=== PATIENT | male | born 1950 | race Caucasian/White ===

== ENCOUNTER 2023-08-16 15:29 | Emergency (ER) | payer MEDICARE, MEDICAID, SELFPAY ==
--- NOTE | ~2023-08-16 | XR_ITS ---
EXAMINATION: XR CHEST CLINICAL INFORMATION: Syncope and fall. COMPARISON: None available. TECHNIQUE: Frontal view of the chest was obtained. FINDINGS: The heart, great vessels, pulmonary vasculature and mediastinum are normal. The lungs show no focal infiltrate, effusion or pneumothorax. There is mild bronchiolar wall thickening. No acute osseous abnormality is seen. XR/XR chest 1V IMPRESSION: 1. No focal infiltrate or congestive heart place seen. 2. There is mild bronchiolar wall thickening, which can be associated with acute bronchiolitis or reactive airways disease.
--- NOTE | ~2023-08-16 | CT_ITS ---
EXAMINATION: CT HEAD WITHOUT CONTRAST CLINICAL INFORMATION: Headache status-post postfall. COMPARISON: None available. TECHNIQUE: Contiguous axial imaging was performed from the skull base to vertex without intravenous administration of contrast. Multiplanar reformatted images are submitted. This CT examination was performed using dose optimization techniques as appropriate, variously including the following: *Automated exposure control *Adjustment of mA and/or kV according to patient size (this includes techniques or standardized protocols for targeted exams where dose is matched to indication/reason for exam; i.e. extremities or head) *Use of iterative reconstruction technique DLP: 1253 mGy-cm (head and cervical spine) FINDINGS: There is no acute intracranial hemorrhage or evidence of territorial infarction. There is mild bifrontal streak artifact. No abnormal mass effect or midline shift is seen. Escobar to white matter differentiation is well preserved. There is mild patchy low attenuation change in the periventricular white matter spaces. There are bilateral basal ganglia lacunar infarctions. The ventricles are normal in size. No extra-axial fluid collections are identified. The calvarium and scalp soft tissues are normal. The middle ear cavity and mastoid air cells are clear. There is cerumen in the left external auditory canal. The visualized paranasal sinuses are clear. CT/CT cervical spine wo IV con IMPRESSION: 1. No acute intracranial pathology. 2. There is mild patchy low attenuation change in the periventricular white matter spaces, commonly associated with chronic microangiopathy. EXAMINATION: CT CERVICAL SPINE WITHOUT CONTRAST CLINICAL INFORMATION: Pain status-post fall. COMPARISON: None available. TECHNIQUE: Contiguous axial imaging was performed through the cervical spine without intravenous administration of contrast. Multiplanar reformatted images are submitted. This CT examination was performed using dose optimization techniques as appropriate, variously including the following: *Automated exposure control *Adjustment of mA and/or kV according to patient size (this includes techniques or standardized protocols for targeted exams where dose is matched to indication/reason for exam; i.e. extremities or head) *Use of iterative reconstruction technique DLP: As above FINDINGS: There is reversal of the normal lordotic curvature. At C6-C7, there is moderate disc space narrowing. The remaining disc spaces are relatively well-maintained. No acute fracture or spondylolisthesis is seen. There is multi-level cervical spondylosis, most pronounced extending from C4-C5 through C6-C7. The posterior elements are intact. The dens is intact. No prevertebral soft tissue swelling is seen. The bilateral lung apices are clear. IMPRESSION: 1. No acute fracture or spondylolisthesis is seen. 2. There is moderate degenerative disc disease C6-C7. 3. There is multi-level cervical spondylosis, most pronounced extending from C4-C5 through C6-C7. 4. There is reversal of the normal curvature, which can be associated muscle spasm. Fleischner guidelines were followed.
[2023-08-16] MEDS: Glucose Gel 15 GM GEL..GRAM. PO (15:50)
[2023-08-16 15:52] VITALS: BP 148/82; BP 166/80; PULSE 88; PULSE 98; RESP 18; O2SAT 100; BMI 23.4
[2023-08-16 15:55] VITALS: PULSE 88
--- NOTE | 2023-08-16 15:57 | PC.NURSE ---
Arrived via ems from [facility] after 2 falls in 30 minutes. Was found outside. Upon arrival patient alert confused. blood sugar 35. Oral glucose given, 20g IV placed and 1 amp 25g/50ml dextrose given, provider aware. BS recheced 175, patient more alert, reports was outside to smoke when he fell. Denies pain or discomfort. Denies chest pain or sob. C collar remains in place
--- NOTE | 2023-08-16 15:59 | ED.GENADULT ---
HPI - General Adult General Chief complaint: Fall Stated complaint: Fall, denies head strike or LOC Time Seen by Provider: 08/16/23 15:54 Source: patient, EMS and financial dealers Mode of arrival: EMS Limitations: no limitations and language barrier History of Present Illness HPI narrative: Patient is a 72 year old assigned male at with a history of DM presenting to the emergency department today with low blood sugar and a fall. Patient states that his blood sugar got low and he fell. Patient denies any loss of consciousness or head strike. Patient denies any current dizziness, lightheadedness, abdominal pain, nausea, vomiting, fever, chills, blurry vision, double vision, loss of vision, chest pain, difficulty breathing, shortness of breath, back pain, night sweats, pain with urination, increased urinary frequency, increased urinary urgency, blood in his urine or stool, bowel incontinence, bladder incontinence, bowel retention, bladder retention, or any other complaints at this time. Onset (ago): minute(s) Relieving factors: none Exacerbating factors: none Associated symptoms: denies other symptoms Treatments prior to arrival: none Related Data Allergies Allergy/AdvReac Type Severity Reaction Status Date / Time No Known Allergies Allergy Verified 08/16/23 15:59 Review of Systems Constitutional: Constitutional: Reports no additional constitutional complaints, Denies chills, Denies fever(s) and Denies night sweats Eyes: Eyes: Reports no additional eye complaints, Denies blurry vision, Denies change in vision, Denies diplopia, Denies eye discharge, Denies loss of vision and Denies eye pain ENT: Denies dizziness Cardiovascular: Cardiovascular: Reports no additional cardiovascular complaints, Denies chest pain, Denies lightheadedness, Denies Loss of Consciousness and Denies dyspnea Respiratory: Respiratory: Reports no additional respiratory complaints and Denies dyspnea Gastrointestinal: Gastrointestinal: Reports no additional gastrointestinal complaints, Denies abdominal pain, Denies melena, Denies hematochezia, Denies change in bowel habits and Denies change in stool character Genitourinary: Genitourinary: Reports no additional male genitourinary complaints, Denies hematuria, Denies oliguria, Denies difficulty urinating, Denies dysuria, Denies urinary frequency, Denies urinary hesitancy, Denies urinary incontinence and Denies urinary urgency Musculoskeletal: Musculoskeletal: Reports no additional musculoskeletal complaints, Denies numbness and Denies tingling Neurologic: Denies dizziness, Denies loss of vision, Denies numbness and Denies tingling Psychiatric: Psychiatric: Reports no additional psychiatric complaints Endocrine: Endocrine: Reports no additional endocrine complaints Hematologic/Lymphatic: Hematologic/Lymphatic: Reports no additional hematologic/lymphatic complaints Allergic/Immunologic: Allergic/Immunologic: Reports no additional allergic/immunologic complaints PMFSH Past Medical History Attestation statement: The following information was validated with the patient. Source: old records reviewed and nursing notes reviewed Social History Social History Alcohol intake: former Smoked in Last 30 Days: Yes Use of substances other than those prescribed or required for medical reasons: No Advance Directives: No Advance Directives Information Provided: No Physical Exam ED Vital Signs: Vital Signs - 24 hr 08/16/23 15:52 08/16/23 15:55 08/16/23 18:00 Temperature 97.8 F Pulse Rate 88 88 102 H Respiratory Rate 18 16 Blood Pressure 148/82 H 170/83 H Pulse Oximetry 100 95 Oxygen Delivery Method Room Air Room Air BMI result Body Mass Index 23.4 Const General: cooperative, no acute distress, alert and awake Nutritional Appearance: well nourished Orientation/consciousness: patient oriented x3 Limitations: no limitations HENMT Head: Yes normal to inspection and Yes atraumatic Ears: hearing grossly normal bilaterally and external ears normal General nose exam: Normal external nose present, no nasal discharge noted and no epistaxis Face and sinus: Yes normal facial exam, No abrasion and No laceration Mouth: Normal oral and palatal mucosa present, no drooling and no muffled voice Eyes General: appearance normal, both eyes and all related structures Periorbital: periorbital findings normal Eyelids: Yes eyelids normal Conjunctivae: conjunctivae normal Pupils: Equal, round and reactive pupils present EOM: EOMs intact bilaterally Neck Neck: Yes normal visual inspection, Yes full ROM and Yes no lymphadenopathy Chest Chest palpation & inspection: normal inspection of the chest Resp Effort & Inspection: normal respiratory effort and able to speak in complete sentences Auscultation: clear to auscultation bilaterally Cardio Rate: regular rate Rhythm: regular rhythm GI Inspection: Yes normal to inspection Neuro General: patient oriented x3 and moves all extremities Cranial nerves: Yes Equal, round and reactive pupils present Cognition (Neuro): normal cognition Motor exam (neuro): 5/5 motor strength present throughout Sensory Exam: Normal double simultaneous stimulation for sensation Coordination: [id number] test normal Extrem General: Yes normal to inspection, Yes full ROM and Yes capillary refill normal Psych Appearance: grossly normal Mental Status: mental status grossly normal Affect: normal affect Attitude: cooperative Thought process: Normal thought process present Thought content: Normal thought content present Insight: Good insight present (Psych) Medications Administered Discontinued Medications Generic Name Dose Route Start Last Admin Trade Name Duncan PRN Reason Stop Dose Admin Dextrose 25 gm 08/16/23 16:02 08/16/23 16:05 Dextrose 50 % 25 Gm/50 Ml Syringe IVPUSH 08/16/23 16:03 25 gm ONCE ONE Administration Glucose 15 gm 08/16/23 16:03 08/16/23 15:50 Glucose Gel 15 Gm Gel..Gram. PO 15 gm Q15M PRN Administration per Hypoglycemia Standing Ord. Sodium Chloride 1,000 mls @ 999 mls/hr 08/16/23 17:45 08/16/23 17:54 Ns IV 08/16/23 18:45 999 mls/hr .Q1H1M JP Administration Medical Decision Making Medical Decision Making MDM Narrative: Patient is a 72 year old assigned male at with a history of DM presenting to the emergency department today with low blood sugar and a fall. Patient's physical exam was unremarkable. Patient's blood work showed a sodium of 128 however, adjusted to the patient's sugar of 198, it is 130. Patient's blood sugar was initially 35 and he was given an amp of D50. Patient's blood sugar went up to 204. Patient's chest x-ray, head CT, and C-spine CTs showed no acute process. Patient was able to eat and drink while in the department without incident. I explained my physical exam findings as well as all test results to the patient. I answered all questions asked by the patient. I stressed the importance of the patient taking his medication as prescribed. I stressed the importance of the patient following up with his primary care provider. I stressed the importance of the patient returning to the emergency department immediately if his symptoms were to worsen or if he were to develop any dizziness, shortness of breath, difficulty breathing, chest pain, blurry vision, loss of vision, nausea, vomiting, abdominal pain, fever, chills, back pain, or any other complaints. Patient verbalized agreement and understanding with this treatment plan and discharge. Differential Diagnosis Differential Diagnoses: The differential diagnosis associated with the presentation includes Fall Hypoglycemia Admission/Observation Consideration of admission/observation: Escalation of care including admission/observation considered Patient would have been admitted to the hospital had his work up had any findings where hospital admission was appropriate and his clinical presentation warranted hospital admission. Lab Data [facility] Lab Attestation statement: I reviewed the patient's lab results. My interpretation of these results are in the [facility] Rationale portion of this note. 08/16/23 17:21 08/16/23 17:21 Labs: Lab Results 08/16/23 08/16/23 08/16/23 Range/Units 15:36 16:00 16:30 WBC (4.8-10.8) X10*3/uL RBC (4.60-5.80) X10*6/uL Hgb (14.0-18.0) g/dl Hct (42.0-52.0) % MCV (80.0-98.0) fL MCH (27.0-33.0) pg MCHC (31.0-36.0) g/dl RDW (11.0-16.0) % Plt Count (160-400) X10*3/uL MPV (9.4-12.4) fL Immature Gran % (Auto) (0.0-0.4) % Neut % (Auto) (45-73) % Lymph % (Auto) (20-40) % Morehouse % (Auto) (2-11) % Eos % (Auto) (0-4) % Baso % (Auto) (0-2) % Lymph # (Auto) (1.2-4.9) X10*3/uL Morehouse # (Auto) (0.1-1.2) X10*3/uL Eos # (Auto) (0.0-0.4) X10*3/uL Baso # (Auto) (0.0-0.2) X10*3/uL Abs Immat Gran (auto) (0.00-0.03) X10*3/uL Absolute Neuts (auto) (2.0-8.3) x10*3/uL Absolute Nucleated RBC (0.0-0.012) X10*3/uL Nucleated RBC % (auto) (0.0-0.2) /100WBC Sodium (135-145) mmol/L Potassium (3.3-5.1) mmol/L Chloride (96-108) mmol/L Carbon Dioxide (22-29) mmol/L Anion Gap (12-20) BUN (9-16) mg/dL Creatinine (0.5-1.4) mg/dL Estim Creat Clear Calc Estimated GFR POC Glucose 35 L* 175 H 204 H (60-115) mg/dL Random Glucose (60-115) mg/dL Calcium (8.4-10.2) mg/dL Total Bilirubin (0.0-1.0) mg/dL AST (5-37) U/L ALT (0-40) U/L Alkaline Phosphatase (39-117) U/L Total Protein (6.5-8.0) g/dL Albumin (3.5-5.0) g/dL Lipase (8-78) U/L 08/16/23 Range/Units 17:21 WBC 12.9 H (4.8-10.8) X10*3/uL RBC 4.95 (4.60-5.80) X10*6/uL Hgb 14.8 (14.0-18.0) g/dl Hct 41.1 L (42.0-52.0) % MCV 83.0 (80.0-98.0) fL MCH 29.9 (27.0-33.0) pg MCHC 36.0 (31.0-36.0) g/dl RDW 13.8 (11.0-16.0) % Plt Count 220 (160-400) X10*3/uL MPV 9.4 (9.4-12.4) fL Immature Gran % (Auto) 0.4 (0.0-0.4) % Neut % (Auto) 82.9 H (45-73) % Lymph % (Auto) 9.6 L (20-40) % Morehouse % (Auto) 6.7 (2-11) % Eos % (Auto) 0.2 (0-4) % Baso % (Auto) 0.2 (0-2) % Lymph # (Auto) 1.2 (1.2-4.9) X10*3/uL Morehouse # (Auto) 0.9 (0.1-1.2) X10*3/uL Eos # (Auto) 0.0 (0.0-0.4) X10*3/uL Baso # (Auto) 0.0 (0.0-0.2) X10*3/uL Abs Immat Gran (auto) 0.05 H (0.00-0.03) X10*3/uL Absolute Neuts (auto) 10.7 H (2.0-8.3) x10*3/uL Absolute Nucleated RBC 0.000 (0.0-0.012) X10*3/uL Nucleated RBC % (auto) 0.0 (0.0-0.2) /100WBC Sodium 128 L (135-145) mmol/L Potassium 4.9 (3.3-5.1) mmol/L Chloride 94 L (96-108) mmol/L Carbon Dioxide 24 (22-29) mmol/L Anion Gap 15 (12-20) BUN 9 (9-16) mg/dL Creatinine 0.84 (0.5-1.4) mg/dL Estim Creat Clear Calc 67.1 Estimated GFR > 60 POC Glucose (60-115) mg/dL Random Glucose 198 H (60-115) mg/dL Calcium 9.3 (8.4-10.2) mg/dL Total Bilirubin 0.5 (0.0-1.0) mg/dL AST 20 (5-37) U/L ALT 16 (0-40) U/L Alkaline Phosphatase 70 (39-117) U/L Total Protein 7.6 (6.5-8.0) g/dL Albumin 4.0 (3.5-5.0) g/dL Lipase 6 L (8-78) U/L Independent Interpretation I performed an independent interpretation of an: Plain X-Ray and CT Scan Interpretation: My interpretation is in agreement with the radiologist's impression of these imaging studies. EXAMINATION: XR CHEST CLINICAL INFORMATION: Syncope and fall. COMPARISON: None available. TECHNIQUE: Frontal view of the chest was obtained. FINDINGS: The heart, great vessels, pulmonary vasculature and mediastinum are normal. The lungs show no focal infiltrate, effusion or pneumothorax. There is mild bronchiolar wall thickening. No acute osseous abnormality is seen. XR/XR chest 1V IMPRESSION: 1. No focal infiltrate or congestive heart place seen. 2. There is mild bronchiolar wall thickening, which can be associated with acute bronchiolitis or reactive airways disease. Dictated By: Jose Raul Diaz MD Signed By: Electronically signed by Jose Raul Diaz MD 08/16/23 1839 EXAMINATION: CT HEAD WITHOUT CONTRAST CLINICAL INFORMATION: Headache status-post postfall. COMPARISON: None available. TECHNIQUE: Contiguous axial imaging was performed from the skull base to vertex without intravenous administration of contrast. Multiplanar reformatted images are submitted. This CT examination was performed using dose optimization techniques as appropriate, variously including the following: *Automated exposure control *Adjustment of mA and/or kV according to patient size (this includes techniques or standardized protocols for targeted exams where dose is matched to indication/reason for exam; i.e. extremities or head) *Use of iterative reconstruction technique DLP: 1253 mGy-cm (head and cervical spine) FINDINGS: There is no acute intracranial hemorrhage or evidence of territorial infarction. There is mild bifrontal streak artifact. No abnormal mass effect or midline shift is seen. Escobar to white matter differentiation is well preserved. There is mild patchy low attenuation change in the periventricular white matter spaces. There are bilateral basal ganglia lacunar infarctions. The ventricles are normal in size. No extra-axial fluid collections are identified. The calvarium and scalp soft tissues are normal. The middle ear cavity and mastoid air cells are clear. There is cerumen in the left external auditory canal. The visualized paranasal sinuses are clear. CT/CT head/brain wo IV con IMPRESSION: 1. No acute intracranial pathology. 2. There is mild patchy low attenuation change in the periventricular white matter spaces, commonly associated with chronic microangiopathy. EXAMINATION: CT CERVICAL SPINE WITHOUT CONTRAST CLINICAL INFORMATION: Pain status-post fall. COMPARISON: None available. TECHNIQUE: Contiguous axial imaging was performed through the cervical spine without intravenous administration of contrast. Multiplanar reformatted images are submitted. This CT examination was performed using dose optimization techniques as appropriate, variously including the following: *Automated exposure control *Adjustment of mA and/or kV according to patient size (this includes techniques or standardized protocols for targeted exams where dose is matched to indication/reason for exam; i.e. extremities or head) *Use of iterative reconstruction technique DLP: As above FINDINGS: There is reversal of the normal lordotic curvature. At C6-C7, there is moderate disc space narrowing. The remaining disc spaces are relatively well-maintained. No acute fracture or spondylolisthesis is seen. There is multi-level cervical spondylosis, most pronounced extending from C4-C5 through C6-C7. The posterior elements are intact. The dens is intact. No prevertebral soft tissue swelling is seen. The bilateral lung apices are clear. IMPRESSION: 1. No acute fracture or spondylolisthesis is seen. 2. There is moderate degenerative disc disease C6-C7. 3. There is multi-level cervical spondylosis, most pronounced extending from C4-C5 through C6-C7. 4. There is reversal of the normal curvature, which can be associated muscle spasm. Fleischner guidelines were followed. Dictated By: Jose Raul Diaz MD Signed By: Electronically signed by Jose Raul Diaz MD 08/16/23 6779 Radiology Impression Discussion of test interpretation with radiology: I have reviewed the radiologist's reading. Independent Historian Clinical information obtained from an independent historian. History obtained from or confirmed by: EMS (EMS provided additional history and confirmed the history provided by the patient.) Chronic Conditions Patient?s care impacted by: Diabetes Critical Care Time Critical Care Time Critical Care Time: Yes Total Critical Care Time: 55 Attestation: I spent 55 minutes of Critical Care Time with this patient. This does not include time spent on separately reported billable procedures. Discharge Plan Discharge Clinical Impression: Hypoglycemia, Fall Patient Disposition: Home, Self-Care Instructions: Hypoglycemia in a Person with Diabetes (ED), Fall Prevention for Older Adults (ED) Additional Instructions: Follow up with your primary care provider. Return to the emergency department immediately if your symptoms worsen or if you develop any dizziness, shortness of breath, difficulty breathing, chest pain, blurry vision, loss of vision, nausea, vomiting, abdominal pain, fever, chills, back pain, or any other complaints. Uma un seguimiento con gavin proveedor de atenci?n primaria. Regrese al departamento de emergencias inmediatamente si andriy s?ntomas empeoran o si presenta mareos, dificultad para respirar, dificultad para respirar, dolor en el pecho, visi?n borrosa, p?rdida de la visi?n, n?useas, v?mitos, dolor abdominal, fiebre, escalofr?os, dolor de espalda o cualquier otras quejas. Referrals: [facility] Family Medicine [Provider Group] (Call to establish and follow up with a primary care provider. If you already have a primary care provider, please follow up with them. Llame para establecer y realizar un seguimiento con un proveedor de atenci?n primaria. Si ya tiene un proveedor de atenci?n primaria, uma un seguimiento con ?l.) [facility] [Provider Group] (Call to establish and follow up with a primary care provider. If you already have a primary care provider, please follow up with them. Llame para establecer y realizar un seguimiento con un proveedor de atenci?n primaria. Si ya tiene un proveedor de atenci?n primaria, uma un seguimiento con ?l.) [facility] [Provider Group] (Call to establish and follow up with a primary care provider. If you already have a primary care provider, please follow up with them. Llame para establecer y realizar un seguimiento con un proveedor de atenci?n primaria. Si ya tiene un proveedor de atenci?n primaria, uma un seguimiento con ?l.) Discharge Date/Time: 08/16/23 23:19 Print Language: Haitian
[2023-08-16] MEDS: Dextrose 50 % 25 GM/50 ML SYRINGE IVPUSH (16:05)
[2023-08-16 16:34] LABS: Glucose, Whole Blood 204 mg/dL (60-115)
[2023-08-16 16:34] LABS: Glucose, Whole Blood 175 mg/dL (60-115)
[2023-08-16 16:34] LABS: Glucose, Whole Blood 35 mg/dL (60-115)
[2023-08-16 17:26] LABS: Basophils Percent Auto 0.2 % (0-2); Eosinophils Percent Auto 0.2 % (0-4); Hematocrit 41.1 % (42.0-52.0); Hemoglobin 14.8 g/dl (14.0-18.0); Imm Gran Abs Auto 0.05 X10*3/uL (0.00-0.03); Imm Gran Pct Auto 0.4 % (0.0-0.4); Lymphocytes Absolute Auto 1.2 X10*3/uL (1.2-4.9); Lymphocytes Percent Auto 9.6 % (20-40); MANUAL DIFF FLAG NO; Mean Corpuscular Hemoglobin 29.9 pg (27.0-33.0); Mean Platelet Volume 9.4 fL (9.4-12.4); Monocytes Absolute Auto 0.9 X10*3/uL (0.1-1.2); Monocytes Percent Auto 6.7 % (2-11); Neutrophils Absolute Auto 10.7 x10*3/uL (2.0-8.3); Neutrophils Percent Auto 82.9 % (45-73); Platelet Count 220 X10*3/uL (160-400); Red Blood Count 4.95 X10*6/uL (4.60-5.80); Red Cell Distribution Width 13.8 % (11.0-16.0); White Blood Count 12.9 X10*3/uL (4.8-10.8)
[2023-08-16 17:39] LABS: Alanine Aminotransferase 16 U/L (0-40); Alkaline Phosphatase 70 U/L (39-117); Anion Gap 15 (12-20); Aspartate Amino Transferase 20 U/L (5-37); Bilirubin Total 0.5 mg/dL (0.0-1.0); Blood Urea Nitrogen 9 mg/dL (9-16); Calcium 9.3 mg/dL (8.4-10.2); Carbon Dioxide 24 mmol/L (22-29); Chloride 94 mmol/L (96-108); Creatinine Clr Calc Pharmacy 67.1; Estimated Glomerular Filt Rate > 60; Glucose Random 198 mg/dL (60-115); Lipase 6 U/L (8-78); Potassium 4.9 mmol/L (3.3-5.1); Sodium 128 mmol/L (135-145); Total Protein 7.6 g/dL (6.5-8.0)
[2023-08-16] MEDS: 0.9 % Sodium Chloride 1,000 ML 999 ML IV (17:54)
[2023-08-16 18:00] VITALS: BP 170/83; PULSE 102; RESP 16; TEMP 36.6; O2SAT 95
--- NOTE | 2023-08-16 18:24 | PC.NURSE ---
Per provider c collar removed, patient alert and oriented, ate well for dinner , vss
== END 2023-08-16 23:19 | disposition home or self-care (01) ==
PROVIDERS: Physician Assistant Medical; Emergency Provider Emergency Medicine
DX: E11.649 Type 2 diabetes mellitus with hypoglycemia without coma (principal); Z91.81 History of falling
CPT/HCPCS: 36415; 70450; 71045; 72125; 80053; 82947; 83690; 85025; 96374; 99284

== ENCOUNTER 2024-08-11 20:56 | Inpatient (IN) | payer MEDICARE, MEDICAID, SELFPAY ==
[2024-08-11] VITALS (7 sets, daily range): BP systolic 155–169; BP diastolic 89–95; PULSE 90–112; RESP 22–28; TEMP 36.4; O2SAT 94–100; BMI 19.8
--- NOTE | 2024-08-11 | ECG_ITS ---
Test Reason : SOB Blood Pressure : */* mmHG Vent. Rate : 92 BPM Atrial Rate : 92 BPM P-R Int : 160 ms QRS Dur : 76 ms QT Int : 348 ms P-R-T Axes : 79 -1 85 degrees QTcB Int : 430 ms Normal sinus rhythm Possible Left atrial enlargement Nonspecific ST and T wave abnormality Abnormal ECG No previous ECGs available Referred By: Generic ED Physician Electronically Signed By: NANCY MADDEN MD
--- NOTE | ~2024-08-11 | XR_ITS ---
CLINICAL HISTORY: cp 2 views chest Comparison: CR/SR - XR CHEST 1V - 08/16/23 18:04 EST Findings: Cardiac and mediastinal contours are normal. Mild chronic interstitial prominence with scattered peribronchial thickening. No focal consolidation. No effusion. No pneumothorax. No acute osseous finding. Impression: Mild chronic interstitial prominence with scattered peribronchial thickening. No focal consolidation. This document has been electronically signed by: Melvin Fish MD on 08/11/2024 22:07:47
--- NOTE | 2024-08-11 21:20 | ED_ITS ---
HPI - SOB/Dyspnea General Chief Complaint: Dyspnea Stated Complaint: diff breathing Time Seen by Provider: 08/11/24 21:08 History of Present Illness HPI Narrative: patient is a 73-year-old male presents today with having coughing congestion upper respiratory symptoms that is been ongoing for about 2 days. Coughing nonproductive. Wheezing. Increasing short of breath. No history of congestive heart failure. Patient did not complaining of any orthopnea. No leg swelling. No chest pain. No fever. No diarrhea. Not vaccinated for the flu. Related Data Allergies Allergy/AdvReac Type Severity Reaction Status Date / Time No Known Allergies Allergy Verified 08/11/24 21:19 Review of Systems 2 Review of Systems: Positive coughing upper respiratory syndrome positive shortness of breath Yes all other systems are reviewed and are negative [facility] Past Medical History Attestation statement: The following information was validated with the patient. Social History Social History Alcohol intake: former Use of substances other than those prescribed or required for medical reasons: No Advance Directives: No Advance Directives Information Provided: No Physical Exam 2 Vital Signs: Vital Signs: Last Vital Signs Temp 97.6 F 08/11/24 23:36 Pulse 112 H 08/11/24 23:36 Resp 25 H 08/11/24 23:36 BP 155/91 H 08/11/24 23:36 Pulse Ox 95 08/11/24 23:36 O2 Del Method Room Air 08/11/24 23:36 BMI result Body Mass Index 19.8 Appearance: Alert. Oriented X3. No acute distress. Eyes: Pupils equal, round and reactive to light. ENT: Pharynx normal. Neck: Normal inspection. Neck supple. No lymph nodes noted. No crepitus CVS: Normal heart rate and rhythm. Pulses normal. Normal S1 and S2 Respiratory: increased work of breathing diminished breath sounds bilaterally wheezing bilaterally Abdomen: Soft and nontender. No rigidity. No distention. good BS x4 Skin: Skin warm and dry. Normal skin color. Normal skin turgor. Extremities: No lower extremity edema. Neurovascular intact to all extremities. No Lacerations. No Rash Neuro: Oriented X 3. No motor deficit. No sensory deficit. Moving all extermities. No slurred speech Medications Administered Discontinued Medications Generic Name Dose Route Start Last Admin Trade Name Freq PRN Reason Stop Dose Admin Albuterol Sulfate 5 mg/ 7.5 mg 08/11/24 21:51 08/11/24 21:59 Albuterol Sulfate 2.5 mg INHALE 08/11/24 21:52 7.5 mg ONCE ONE Administration Albuterol Sulfate 7.5 mg/ 10 mg 08/11/24 22:02 08/11/24 22:06 Albuterol Sulfate 2.5 mg INHALE 08/11/24 22:03 10 mg ONCE ONE Administration Methylprednisolone Sodium Succinate 125 mg 08/11/24 21:18 08/11/24 21:36 Methylprednisolone Sod Succ 125 Mg/2 Ml Vial IVPUSH 08/11/24 21:19 125 mg ONCE ONE Administration Medical Decision Making Medical Decision Making [facility] Narrative: Patient given steroid multiple neb treatments. Symptom improved moderately. But still have elevated respiratory rate. Up to proximally 25. Upon ambulation patient's O2 sat dropped to approximately 91. Have coughing shortness of breath lives in a rest home. Patient is a lifelong smoker. After additional treatments. Catheter thoughts. Elected to admit patient for further evaluation overnight. Patient's BNP was normal. No evidence for congestive heart failure. Troponin was negative. Flu COVID RSV were negative. Chest x-ray by my interpretation showed no focal infiltrate. Case discussed with hospitalist team will admit for further evaluation Differential Diagnosis Differential Diagnoses: The differential diagnosis associated with the presentation includes COPD, pneumonia, flu, RSV, congestive heart failure Admission/Observation Consideration of admission/observation: Escalation of care including admission/observation considered Consult Healthcare Provider Management of the patient was discussed with: Hospitalist Lab Data [facility] Lab Attestation statement: I reviewed the patient's lab results. 08/11/24 21:36 08/11/24 21:36 Labs: Lab Results 08/11/24 08/11/24 Range/Units 21:36 22:22 WBC 10.2 (4.8-10.8) X10*3/uL RBC 4.88 (4.60-5.80) X10*6/uL Hgb 14.7 (14.0-18.0) g/dl Hct 41.3 L (42.0-52.0) % MCV 84.6 (80.0-98.0) fL MCH 30.1 (27.0-33.0) pg MCHC 35.6 (31.0-36.0) g/dl RDW 14.6 (11.0-16.0) % Plt Count 192 (160-400) X10*3/uL MPV 9.1 L (9.4-12.4) fL Immature Gran % (Auto) 0.2 (0.0-0.4) % Neut % (Auto) 59.6 (45-73) % Lymph % (Auto) 27.5 (20-40) % [place] % (Auto) 11.9 H (2-11) % Eos % (Auto) 0.6 (0-4) % Baso % (Auto) 0.2 (0-2) % Lymph # (Auto) 2.8 (1.2-4.9) X10*3/uL [place] # (Auto) 1.2 (0.1-1.2) X10*3/uL Eos # (Auto) 0.1 (0.0-0.4) X10*3/uL Baso # (Auto) 0.0 (0.0-0.2) X10*3/uL Abs Immat Gran (auto) 0.02 (0.00-0.03) X10*3/uL Absolute Neuts (auto) 6.1 (2.0-8.3) x10*3/uL Absolute Nucleated RBC 0.000 (0.0-0.012) X10*3/uL Nucleated RBC % (auto) 0.0 (0.0-0.2) /100WBC Smear Tech's Comments VERIFIED Sodium 130 L (135-145) mmol/L Potassium 4.6 (3.3-5.1) mmol/L Chloride 96 (96-108) mmol/L Carbon Dioxide 25 (22-29) mmol/L Anion Gap 14 (12-20) BUN 10 (9-16) mg/dL Creatinine 0.80 (0.5-1.4) mg/dL Estim Creat Clear Calc 53.6 Estimated GFR > 60 Random Glucose 238 H (60-115) mg/dL Calcium 9.9 D (8.4-10.2) mg/dL Total Bilirubin 0.4 (0.0-1.0) mg/dL Direct Bilirubin 0.2 (0.0-0.5) mg/dL AST 26 (5-37) U/L ALT 19 (0-40) U/L Alkaline Phosphatase 67 (39-117) U/L Troponin I High Sens < 2.7 (<3.5-35.0) ng/L B-Natriuretic Peptide 34 (<100) pg/mL Total Protein 8.1 H (6.5-8.0) g/dL Albumin 4.2 (3.5-5.0) g/dL Urine Color Yellow Urine Appearance Clear Urine pH 6.0 (5.0-9.0) Ur Specific [place] 1.010 (1.005-1.025) Urine Protein Negative (Neg-Trace) mg/dL Urine Glucose (UA) >=1000 H (Negative) mg/dL Urine Ketones Negative (Negative) mg/dL Urine Blood Negative (Negative) Urine Nitrite Negative (Negative) Ur Leukocyte Esterase Negative (Negative) Urine RBC 0-2 (0-2) /HPF Urine WBC 0-5 (0-5) /HPF Ur Squamous Epith Cells 0-2 (0-2) /HPF Urine Bacteria None Seen (None Seen) Hyaline Casts 0-2 (0-2) /LPF Influenza Type A (PCR) NEGATIVE (Negative) Influenza Type B (PCR) NEGATIVE (Negative) RSV RNA Qual (PCR) NEGATIVE (Negative) SARS-CoV-2 RNA (RT-PCR) NEGATIVE (Negative) Independent Interpretation I performed an independent interpretation of an: EKG ( sinus heart rate is 90 AK QRS QTC normal no acute ST segment elevation) and Plain X-Ray ( chest x-ray showed no focal infiltrate) Radiology Impression Discussion of test interpretation with radiology: I have reviewed the radiologist's reading. External Record Review patient's records from the [facility] was reviewed Chronic Conditions long history of COPD. Long history of smoking Social Determinants Patient?s care significantly limited by Social Determinants of Health including: Problems related to primary support group history of smoking Critical Care Time Critical Care Time Critical Care Time: Yes Total Critical Care Time: 40 Attestation: I have personally provided 40 minutes of critical care time exclusive of time spent on separately billable procedures. Time includes review of lab data, radiology results, discussion with consultants, and monitoring for potential decompensation. Interventions were performed as documented above Discharge Plan Discharge Clinical Impression: Acute exacerbation of chronic obstructive airways disease Patient Disposition: Admitted As Inpatient Print Language: Nigerien
[2024-08-11] MEDS: methylPREDNISolone Sod Succ 125 MG/2 ML VIAL IVPUSH (21:36)
[2024-08-11 21:44] LABS: Basophils Percent Auto 0.2 % (0-2); Eosinophils Absolute Auto 0.1 X10*3/uL (0.0-0.4); Eosinophils Percent Auto 0.6 % (0-4); Hematocrit 41.3 % (42.0-52.0); Hemoglobin 14.7 g/dl (14.0-18.0); Imm Gran Abs Auto 0.02 X10*3/uL (0.00-0.03); Imm Gran Pct Auto 0.2 % (0.0-0.4); Lymphocytes Absolute Auto 2.8 X10*3/uL (1.2-4.9); Lymphocytes Percent Auto 27.5 % (20-40); MANUAL DIFF FLAG SCAN; Mean Corpuscular HGB Conc 35.6 g/dl (31.0-36.0); Mean Corpuscular Hemoglobin 30.1 pg (27.0-33.0); Mean Corpuscular Volume 84.6 fL (80.0-98.0); Mean Platelet Volume 9.1 fL (9.4-12.4); Monocytes Absolute Auto 1.2 X10*3/uL (0.1-1.2); Monocytes Percent Auto 11.9 % (2-11); Neutrophils Absolute Auto 6.1 x10*3/uL (2.0-8.3); Neutrophils Percent Auto 59.6 % (45-73); Platelet Count 192 X10*3/uL (160-400); Red Blood Count 4.88 X10*6/uL (4.60-5.80); Red Cell Distribution Width 14.6 % (11.0-16.0); SCAN SMEAR FLAG 1; White Blood Count 10.2 X10*3/uL (4.8-10.8)
[2024-08-11 21:57] LABS: Alanine Aminotransferase 19 U/L (0-40); Albumin Level 4.2 g/dL (3.5-5.0); Alkaline Phosphatase 67 U/L (39-117); Anion Gap 14 (12-20); Aspartate Amino Transferase 26 U/L (5-37); Bilirubin Direct 0.2 mg/dL (0.0-0.5); Bilirubin Total 0.4 mg/dL (0.0-1.0); Blood Urea Nitrogen 10 mg/dL (9-16); Calcium 9.9 mg/dL (8.4-10.2); Carbon Dioxide 25 mmol/L (22-29); Chloride 96 mmol/L (96-108); Creatinine Clr Calc Pharmacy 53.6; Estimated Glomerular Filt Rate > 60; Glucose Random 238 mg/dL (60-115); Potassium 4.6 mmol/L (3.3-5.1); Sodium 130 mmol/L (135-145); Total Protein 8.1 g/dL (6.5-8.0)
[2024-08-11] MEDS: Albuterol Sulfate 5 MG, Albuterol Sulfate (0.083%) 2.5 MG 7.5 MG INHALE (21:59)
[2024-08-11 22:03] LABS: B Type Natriuretic Peptide 34 pg/mL (<100)
[2024-08-11 22:04] LABS: SLIDE REVIEW VERIFIED
[2024-08-11] MEDS: Albuterol Sulfate 7.5 MG, Albuterol Sulfate (0.083%) 2.5 MG 10 MG INHALE (22:06)
[2024-08-11 22:08] LABS: Troponin-I High Sensitivity < 2.7 ng/L (<3.5-35.0)
[2024-08-11 22:18] LABS: Influenza A PCR NEGATIVE (Negative); Influenza B PCR NEGATIVE (Negative); Resp Syncy Virus RNA Qual PCR NEGATIVE (Negative); SARS COV2 PCR INHOUSE NEGATIVE (Negative)
[2024-08-11 22:44] LABS: Appearance Urine Clear; Color Urine Yellow; Glucose Urine UA >=1000 mg/dL (Negative); Leukocyte Esterase Urine Negative (Negative); Nitrite Urine Negative (Negative); UMIC TRIGGER UACC YES; Urine Blood Negative (Negative); Urine Ketones Negative (Negative); Urine Protein Negative (Neg-Trace)
[2024-08-11 22:48] LABS: Bacteria Urine None Seen (None Seen); Hyaline Casts Urine 0-2 /LPF (0-2); RBC Urine 0-2 /HPF (0-2); Squamous Epithelial Cell Urine 0-2 /HPF (0-2); WBC Urine 0-5 /HPF (0-5)
--- NOTE | 2024-08-11 23:36 | PC.NURSE ---
assumed care of patient at this time, patient resting quietly with no complaints at this time. patient given call hinojosa
[2024-08-12] VITALS (8 sets, daily range): BP systolic 143–168; BP diastolic 78–94; PULSE 87–118; RESP 16–23; TEMP 36.3–37.2; O2SAT 94–98; BMI 22.7
--- NOTE | 2024-08-12 00:30 | PC.NURSE ---
This RN ambulated patient in [place], O2 91-94% patient reporting no shortness of breathe heart rate from 120 to 140. provider aware
[2024-08-12] MEDS: Albuterol Sulfate (0.083%) 2.5 MG/3 ML VIAL.NEB INHALE (01:47)
[2024-08-12] MEDS: Magnesium Sulfate/H2O 2 GM/50 ML PIGGYBACK IV (01:47)
--- NOTE | 2024-08-12 02:08 | P.HPHOSP_ITS ---
History of Present Illness Date of Service: 08/12/24 Attending physician on admission: Ulices Cook Chief Complaint: Shortness of breath Deavughn Padilla is a 73 years old man with past medical history significant for type 2 diabetes mellitus on insulin and essential hypertension presents to the emergency department complaining of severe shortness on breath that started this morning after eating. He does complain of dry cough and wheezing. Denied chest pain, headache, palpitations or dizziness. Did not report fever or chills. Did not report any acute gastrointestinal or genitourinary symptoms. There is no leg edema. He has an ongoing tobacco smoker. Denied illicit drug use or alcohol abuse. In the ED, in the emergency department he was found to have tachycardia and tachypnea. Last blood pressure is 168/92. Oxygen saturation is 94 on room air. According to ED staff patient became very short of breath upon walking despite receiving Solu-Medrol IV and bronchodilator therapy x2. Blood workup showed no leukocytosis. Hemoglobin is 14.7 and platelets 192. There are no significant electrolyte imbalances, except for minimal hyponatremia (corrected Na+ 133). Renal function and LFTs are normal. BNP and troponin are normal. CXR showed mild chronic interstitial prominence with scattered peribronchial thickening and no focal consolidation. ECG showed normal sinus rhythm with a heart rate of 92 bpm, with nonspecific ST and T-wave abnormalities. ED tx: Albuterol nebs x2. Magnesium 2 g IV, Solu-Medrol 125 mg IV Review of Systems 2 Review of Systems: All 12 systems were reviewed and normal except as noted in HPI. REPLACED BY [facility] Medical History (Updated 08/12/24 @ 04:19 by Ulices Cook MD) Hyperlipidemia Essential hypertension Type 2 diabetes mellitus Social History Alcohol intake: former Use of substances other than those prescribed or required for medical reasons: No Advance Directives: No Advance Directives Information Provided: No Meds Allergies Allergy/AdvReac Type Severity Reaction Status Date / Time No Known Allergies Allergy Verified 08/11/24 21:19 Active Medications: Current Medications Acetaminophen (Acetaminophen 325 Mg Tablet) 975 mg PO Q6H PRN PRN Reason: Pain, Mild 1-3,fever,headache Albuterol Sulfate (Albuterol Sulfate (0.083%) 2.5 Mg/3 Ml Vial.Neb) 2.5 mg INHALE Q2H PRN PRN Reason: Shortness of Breath/Wheezing Albuterol/Ipratropium (Albuterol/Iprat 2.5/0.5mg 3 Ml Ampul.Neb) 3 ml INHALE RQ4H WHILE AWAKE [facility] Glucose (Glucose Gel 15 Gm Gel..Gram.) 15 gm PO Q15M PRN; Protocol PRN Reason: per Hypoglycemia Standing Ord. Heparin Sodium (Porcine) (Heparin Sodium,Porcine 5,000 Unit/Ml Vial) 5,000 unit SUBCUT Q12H [facility] Dextrose (D10) 250 mls @ 750 mls/hr IV Q15M PRN; Protocol PRN Reason: per Hypoglycemia Standing Ord. Insulin Human Lispro (Insulin Lispro 100 Unit/Ml 3 Ml Vial) 0 unit SUBCUT QIDACHS [facility]; Protocol Methylprednisolone Sodium Succinate (Methylprednisolone Sod Succ 40 Mg/Ml Vial) 40 mg IVPUSH BID [facility] Sodium Chloride (0.9 % Sodium Chloride Flush 3 Ml Syringe) 3 ml IVFLUSH QSHIFT [facility] Physical Exam 2 Vital Signs and Narrative: Vital Signs: Last Vital Signs Temp 97.6 F 08/11/24 23:36 Pulse 118 H 08/12/24 01:46 Resp 16 08/12/24 01:46 BP 168/92 H 08/12/24 01:46 Pulse Ox 94 08/12/24 01:46 O2 Del Method Room Air 08/12/24 01:46 BMI result Body Mass Index 19.8 Constitutional - Awake and Alert, No apparent distress. Breathing with pursed lips. Cooperative. Pleasant. HEENT - PERRL, EOMI. Heart - tachycardia, regular rhythm Lungs - Normal lung expansion, Normal respiratory effort, No respiratory distress. Tachypnea. Bilateral rhonchi. No wheezing. No crackles. Extremities - no calf tenderness bilaterally, no swelling Musculoskeletal - Normal inspection, normal ROM Skin - Warm/Dry. No pallor. Neurological - Alert & oriented x3. No focal weakness grossly noted. Normal speech. Psychological - Appropriate affect Results Labs 08/11/24 21:36 08/11/24 21:36 Labs: Laboratory Results - last 24 hr 08/11/24 08/11/24 21:36 22:22 MCV 84.6 MCH 30.1 MCHC 35.6 RDW 14.6 Plt Count 192 MPV 9.1 L Immature Gran % (Auto) 0.2 Neut % (Auto) 59.6 Lymph % (Auto) 27.5 [place] % (Auto) 11.9 H Eos % (Auto) 0.6 Baso % (Auto) 0.2 Lymph # (Auto) 2.8 [place] # (Auto) 1.2 Eos # (Auto) 0.1 Baso # (Auto) 0.0 Abs Immat Gran (auto) 0.02 Absolute Neuts (auto) 6.1 Absolute Nucleated RBC 0.000 Nucleated RBC % (auto) 0.0 Smear Tech's Comments VERIFIED Anion Gap 14 Estim Creat Clear Calc 53.6 Estimated GFR > 60 Random Glucose 238 H Calcium 9.9 D Total Bilirubin 0.4 Direct Bilirubin 0.2 AST 26 ALT 19 Alkaline Phosphatase 67 Troponin I High Sens < 2.7 B-Natriuretic Peptide 34 Total Protein 8.1 H Albumin 4.2 Urine Color Yellow Urine Appearance Clear Urine pH 6.0 Ur Specific [place] 1.010 Urine Protein Negative Urine Glucose (UA) >=1000 H Urine Ketones Negative Urine Blood Negative Urine Nitrite Negative Ur Leukocyte Esterase Negative Urine RBC 0-2 Urine WBC 0-5 Ur Squamous Epith Cells 0-2 Urine Bacteria None Seen Hyaline Casts 0-2 Influenza Type A (PCR) NEGATIVE Influenza Type B (PCR) NEGATIVE RSV RNA Qual (PCR) NEGATIVE SARS-CoV-2 RNA (RT-PCR) NEGATIVE Assessment and Plan (1) Acute exacerbation of chronic obstructive airways disease: Status: Acute (2) Hyponatremia: Status: Acute Plan Devaughn Padilla is a 73 y/o man admitted with: * Acute exacerbation of chronic obstructive pulmonary disease/bronchitis, suspecting (no official diagnosis of emphysema or COPD per chart review). Admit to hospitalist service. Telemetry. Pulse oximetry. Supplemental O2 to keep O2 sats > 90%. Continue bronchodilator therapy and IV steroids. Hold propranolol (bronchospasms). Patient was advised to consider tobacco smoking cessation. * Mild hyponatremia, corrected sodium 133. Hold hydrochlorothiazide. Continue to monitor. * Type 2 diabetes mellitus. BG checks before meals at bedtime. Continue Lantus. Insulin sliding scale. Hold metformin. Diabetic diet. * Essential hypertension. Continue amlodipine, and DINO inhibitor (pt takes enalapril). Propranolol hold causes bronchospasms. * Hyperlipidemia. Continue statin. * Mood disorder. Continue home medications. * Tobacco dependence. Tobacco cessation education. DVT prophylaxis: Heparin Code status: DNR (per [facility] Patient will need hospitalization for at least 2 midnights for COPD exacerbation with bronchodilator therapy, IV steroids and supplemental oxygen as needed. Quality Stroke Does the patient have a stroke diagnosis?: No VTE Prior VTE?: No VTE Risk Level:: Medical - moderate - high VTE Device Contraindication: Treatment Not Indicated VTE Drug Contraindication: N/A - Med Ordered
[2024-08-12 04:43] LABS: Venous Blood Gas Refer to POC result
[2024-08-12 04:45] LABS: Basophils Percent Auto 0.1 % (0-2); Hematocrit 43.3 % (42.0-52.0); Hemoglobin 15.2 g/dl (14.0-18.0); Imm Gran Abs Auto 0.03 X10*3/uL (0.00-0.03); Imm Gran Pct Auto 0.4 % (0.0-0.4); Lymphocytes Absolute Auto 0.8 X10*3/uL (1.2-4.9); Lymphocytes Percent Auto 10.9 % (20-40); Mean Corpuscular HGB Conc 35.1 g/dl (31.0-36.0); Mean Corpuscular Hemoglobin 29.6 pg (27.0-33.0); Mean Corpuscular Volume 84.4 fL (80.0-98.0); Monocytes Absolute Auto 0.1 X10*3/uL (0.1-1.2); Monocytes Percent Auto 1.4 % (2-11); Neutrophils Absolute Auto 6.4 x10*3/uL (2.0-8.3); Neutrophils Percent Auto 87.2 % (45-73); Platelet Count 211 X10*3/uL (160-400); Red Blood Count 5.13 X10*6/uL (4.60-5.80); Red Cell Distribution Width 14.6 % (11.0-16.0); SCAN SMEAR FLAG 1; White Blood Count 7.4 X10*3/uL (4.8-10.8)
[2024-08-12 04:46] LABS: MANUAL DIFF FLAG SCAN
[2024-08-12 04:48] LABS: VBG Base Excess 0.4 mmol/L; VBG HCO3 23 mmol/L (22-26); VBG pCO2 33 mmHg; VBG pH 7.45 (7.32-7.43); VBG pO2 40 mmHg
[2024-08-12 04:57] LABS: Anion Gap 22 (12-20); Blood Urea Nitrogen 11 mg/dL (9-16); Calcium 9.4 mg/dL (8.4-10.2); Carbon Dioxide 19 mmol/L (22-29); Chloride 96 mmol/L (96-108); Creatinine Clr Calc Pharmacy 51.6; Estimated Glomerular Filt Rate > 60; Glucose Random 302 mg/dL (60-115); Sodium 133 mmol/L (135-145)
[2024-08-12] MEDS: Insulin Lispro 100 UNIT/ML 3 ML VIAL SUBCUT ×3 (07:25→22:26)
[2024-08-12 07:45] LABS: Glucose, Whole Blood 257 mg/dL (60-115)
--- NOTE | 2024-08-12 08:02 | PHA.MEDREC ---
Pharmacy Consult ? Medication Reconciliation Pharmacy has completed the medication reconciliation, utilized list from [facility] and called to verify dosing of trulicity and day of administration.
[2024-08-12] MEDS: Albuterol/Iprat 2.5/0.5MG 3 ML AMPUL.NEB INHALE ×3 (08:04→14:50)
[2024-08-12] MEDS: Insulin Glargine,Hum.rec.anlog 100 UNIT/ML 10 ML VIAL 14 UNIT SUBCUT (08:48)
[2024-08-12] MEDS: methylPREDNISolone Sod Succ 40 MG/ML VIAL IVPUSH ×2 (08:48→22:25)
[2024-08-12] MEDS: Benztropine Mesylate 1 MG TABLET PO ×2 (08:48→22:25)
[2024-08-12] MEDS: Aspirin Enteric Coated 81 MG TABLET.DR PO (08:48)
[2024-08-12] MEDS: busPIRone HCl 5 MG TABLET 15 MG PO ×2 (08:48→22:25)
[2024-08-12] MEDS: HaloperidoL 1 MG TABLET PO (08:48)
[2024-08-12] MEDS: Heparin Sodium,Porcine 5,000 UNIT/ML VIAL 5000 UNIT SUBCUT ×2 (08:48→22:25)
[2024-08-12] MEDS: amLODIPine Besylate 5 MG TABLET PO (08:53)
[2024-08-12] MEDS: 0.9 % Sodium Chloride Flush 3 ML SYRINGE IVFLUSH ×3 (08:53→22:26)
[2024-08-12] MEDS: atenoloL 50 MG TABLET PO ×2 (08:53→22:25)
[2024-08-12] MEDS: Enalapril Maleate 10 MG TABLET 40 MG PO (09:31)
[2024-08-12] MEDS: Ketorolac Tromethamine 0.5% Op 5 ML DROPS 1 DROP EYE-RIGHT ×3 (09:32→17:09)
[2024-08-12] MEDS: Sodium Chloride Tab 1 GM TABLET 2 GM PO (09:32)
[2024-08-12 12:58] LABS: Glucose, Whole Blood 242 mg/dL (60-115)
--- NOTE | 2024-08-12 15:55 | MHC.CM.PN ---
STERILE TECH MET WITH PT IN ED PT WAS NOT VERY FORTHCOMING WITH INFORMATION. PT USES NO SERVICES OR DME. NO OTHER INFORMATION PROVIDED BY PT.
[2024-08-12] MEDS: Sodium Chloride Tab 1 GM TABLET PO ×2 (17:09→22:25)
--- NOTE | 2024-08-12 17:32 | PM.EVENT ---
Event Note Date of Service: 08/12/24 Event Note: This patient is seen and examined hospitalist service this morning, seen examined again. Short numbness seems somewhat improving but but gets winded with minimal exertion Has dry cough. Physical exam and assessment and plan coordinated in h&P note, Agree with the plan in addition: Acute exacerbation of chronic obstructive pulmonary disease/bronchitis: continue nebs ,setriods . Time Spent With Patient Time: Total time managing care of this patient today ____ minutes.
[2024-08-12 18:36] LABS: Glucose, Whole Blood 194 mg/dL (60-115)
[2024-08-12 20:33] LABS: Glucose, Whole Blood 213 mg/dL (60-115)
[2024-08-12] MEDS: HaloperidoL 1 MG TABLET 2 MG PO (22:25)
[2024-08-12] MEDS: Atorvastatin Calcium 20 MG TABLET PO (22:25)
[2024-08-12] MEDS: guaiFENesin DM 100/10/5 ML 5 ML SYRUP 10 ML PO (22:39)
[2024-08-13] VITALS (9 sets, daily range): BP systolic 129–168; BP diastolic 76–84; PULSE 75–86; RESP 16–20; TEMP 36.1–36.7; O2SAT 78–96
[2024-08-13 07:56] LABS: Glucose, Whole Blood 232 mg/dL (60-115)
[2024-08-13] MEDS: Albuterol/Iprat 2.5/0.5MG 3 ML AMPUL.NEB INHALE ×4 (08:01→21:24)
[2024-08-13] MEDS: Ketorolac Tromethamine 0.5% Op 5 ML DROPS 1 DROP EYE-RIGHT ×4 (08:41→21:54)
[2024-08-13] MEDS: methylPREDNISolone Sod Succ 40 MG/ML VIAL IVPUSH ×2 (08:42→21:54)
[2024-08-13] MEDS: Insulin Glargine,Hum.rec.anlog 100 UNIT/ML 10 ML VIAL 14 UNIT SUBCUT (08:42)
[2024-08-13] MEDS: Heparin Sodium,Porcine 5,000 UNIT/ML VIAL 5000 UNIT SUBCUT ×2 (08:42→21:54)
[2024-08-13] MEDS: guaiFENesin DM 100/10/5 ML 5 ML SYRUP 10 ML PO ×3 (08:42→22:00)
[2024-08-13] MEDS: Insulin Lispro 100 UNIT/ML 3 ML VIAL SUBCUT ×3 (08:42→21:53)
[2024-08-13] MEDS: busPIRone HCl 5 MG TABLET 15 MG PO ×2 (08:43→21:53)
[2024-08-13] MEDS: Sodium Chloride Tab 1 GM TABLET 2 GM PO (08:43)
[2024-08-13] MEDS: Enalapril Maleate 10 MG TABLET 40 MG PO (08:43)
[2024-08-13] MEDS: HaloperidoL 1 MG TABLET PO (08:43)
[2024-08-13] MEDS: Benztropine Mesylate 1 MG TABLET PO ×2 (08:43→21:54)
[2024-08-13] MEDS: Aspirin Enteric Coated 81 MG TABLET.DR PO (08:43)
[2024-08-13] MEDS: 0.9 % Sodium Chloride Flush 3 ML SYRINGE IVFLUSH ×3 (08:44→21:54)
[2024-08-13] MEDS: amLODIPine Besylate 5 MG TABLET PO (08:44)
[2024-08-13] MEDS: atenoloL 50 MG TABLET PO ×2 (08:44→21:53)
--- NOTE | 2024-08-13 11:24 | MHC.CM.PN ---
IMM 08/13/24, Pt. speaks and understands Yakut. He lives at [facility], for nurse there re: his baseline and care needs there. PCP: Paul Lei. No HCP on file. He will needs assistance with transport home at DC. DCP: return to rest home. CM to follow for DC needs.
[2024-08-13 12:26] LABS: Glucose, Whole Blood 201 mg/dL (60-115)
[2024-08-13] MEDS: Sodium Chloride Tab 1 GM TABLET PO ×2 (13:04→21:53)
[2024-08-13 16:39] LABS: Glucose, Whole Blood 148 mg/dL (60-115)
--- NOTE | 2024-08-13 18:29 | HO.PM.IMPN ---
Subjective Subjective Date of Service: 08/13/24 Interval History: copd exceerbation Review of Systems desats with little excersionm,also gets sob denies any chest pain Physical Exam Vital Signs: Vital Signs: Last Vital Signs Temp 97.7 F 08/13/24 16:00 Pulse 78 08/13/24 16:26 Resp 16 08/13/24 16:26 BP 129/78 08/13/24 16:00 Pulse Ox 96 08/13/24 16:00 O2 Del Method Room Air 08/13/24 16:00 BMI result Body Mass Index 22.7 Appearance: Alert.? Oriented X3.?sob cvs: rrr, [id number] , no murmur res: air entry somewhat improving ,has b/l wheezing abd: no rebound or guarding ,nt, bs present. ext pulses present , no cyanosis . neuro: axo3 , nonfocal. Objective Data Active Medications Acetaminophen (Acetaminophen 325 Mg Tablet) 975 mg PO Q6H PRN PRN Reason: Pain, Mild 1-3,fever,headache Al Hydroxide/Mg Hydroxide (Magnesium Hydrox/Alum Hydrox 30 Ml Oral.Susp) 30 ml PO Q4H PRN PRN Reason: GI distress Albuterol Sulfate (Albuterol Sulfate (0.083%) 2.5 Mg/3 Ml Vial.Neb) 2.5 mg INHALE Q2H PRN PRN Reason: Shortness of Breath/Wheezing Albuterol/Ipratropium (Albuterol/Iprat 2.5/0.5mg 3 Ml Ampul.Neb) 3 ml INHALE RQ4H WHILE AWAKE [facility] Last Admin: 08/13/24 16:24 Dose: 3 ml Documented By: DI Amlodipine Besylate (Amlodipine Besylate 5 Mg Tablet) 5 mg PO DAILY [facility]; Protocol Last Admin: 08/13/24 08:44 Dose: 5 mg Documented By: VALENTINA Aspirin (Aspirin Enteric Coated 81 Mg Tablet.) 81 mg PO DAILY [facility] Last Admin: 08/13/24 08:43 Dose: 81 mg Documented By: VALENTINA Atenolol (Atenolol 50 Mg Tablet) 50 mg PO BID [facility]; Protocol Last Admin: 08/13/24 08:44 Dose: 50 mg Documented By: VALENTINA Atorvastatin Calcium (Atorvastatin Calcium 20 Mg Tablet) 20 mg PO BEDTIME [facility] Last Admin: 08/12/24 22:25 Dose: 20 mg Documented By: LEXX Benztropine Mesylate (Benztropine Mesylate 1 Mg Tablet) 1 mg PO BID [facility] Last Admin: 08/13/24 08:43 Dose: 1 mg Documented By: VALENTINA Buspirone HCl (Buspirone Hcl 5 Mg Tablet) 15 mg PO BID [facility] Last Admin: 08/13/24 08:43 Dose: 15 mg Documented By: VALENTINA Enalapril Maleate (Enalapril Maleate 10 Mg Tablet) 40 mg PO DAILY [facility]; Protocol Last Admin: 08/13/24 08:43 Dose: 40 mg Documented By: VALENTINA Glucose (Glucose Gel 15 Gm Gel..Gram.) 15 gm PO Q15M PRN; Protocol PRN Reason: per Hypoglycemia Standing Ord. Guaifenesin/Dextromethorphan (Guaifenesin Dm 100/10/5 Ml 5 Ml Syrup) 10 ml PO Q4H PRN PRN Reason: Cough Last Admin: 08/13/24 17:05 Dose: 10 ml Documented By: VALENTINA Haloperidol (Haloperidol 1 Mg Tablet) 1 mg PO DAILY [facility] Last Admin: 08/13/24 08:43 Dose: 1 mg Documented By: VALENTINA Haloperidol (Haloperidol 1 Mg Tablet) 2 mg PO BEDTIME [facility] Last Admin: 08/12/24 22:25 Dose: 2 mg Documented By: LEXX Heparin Sodium (Porcine) (Heparin Sodium,Porcine 5,000 Unit/Ml Vial) 5,000 unit SUBCUT Q12H [facility] Last Admin: 08/13/24 08:42 Dose: 5,000 unit Documented By: VALENTINA Dextrose (D10) 250 mls @ 750 mls/hr IV Q15M PRN; Protocol PRN Reason: per Hypoglycemia Standing Ord. Insulin Glargine (Insulin Glargine,Hum.Rec.Anlog 100 Unit/Ml 10 Ml Vial) 14 unit SUBCUT DAILY [facility] Last Admin: 08/13/24 08:42 Dose: 14 unit Documented By: VALENTINA Insulin Human Lispro (Insulin Lispro 100 Unit/Ml 3 Ml Vial) 0 unit SUBCUT QIDACHS [facility]; Protocol Last Admin: 08/13/24 16:45 Dose: Not Given Documented By: VALENTINA Non-Admin Reason: No Insulin Coverage Ketorolac Tromethamine (Ketorolac Tromethamine 0.5% Op 5 Ml Drops) 1 drop EYE-RIGHT QID [facility] Last Admin: 08/13/24 17:05 Dose: 1 drop Documented By: VALENTINA Loperamide HCl (Loperamide Hcl 2 Mg Capsule) 4 mg PO Q6H PRN PRN Reason: Diarrhea Magnesium Hydroxide (Milk Of Magnesia 30 Ml Oral.Susp) 30 ml PO DAILY PRN PRN Reason: Constipation Methylprednisolone Sodium Succinate (Methylprednisolone Sod Succ 40 Mg/Ml Vial) 40 mg IVPUSH BID [facility] Last Admin: 08/13/24 08:42 Dose: 40 mg Documented By: VALENTINA Sodium Chloride (0.9 % Sodium Chloride Flush 3 Ml Syringe) 3 ml IVFLUSH QSHIFT [facility] Last Admin: 08/13/24 17:05 Dose: 3 ml Documented By: VALENTINA Sodium Chloride (Sodium Chloride Tab 1 Gm Tablet) 1 gm PO BID@1400,2100 [facility] Last Admin: 08/13/24 13:04 Dose: 1 gm Documented By: VALENTINA Sodium Chloride (Sodium Chloride Tab 1 Gm Tablet) 2 gm PO DAILY [facility] Last Admin: 08/13/24 08:43 Dose: 2 gm Documented By: VALENTINA Labs 08/12/24 04:40 08/12/24 04:40 Labs: Laboratory Results - last 24 hr 08/12/24 08/12/24 08/13/24 18:33 20:29 07:22 POC Glucose 194 H 213 H 232 H 08/13/24 08/13/24 11:44 16:35 POC Glucose 201 H 148 H Assessment and Plan (1) Hyponatremia: Status: Acute (2) Acute exacerbation of chronic obstructive airways disease: Status: Acute Assessment and Plan: 73 y/o man admitted with: Acute exacerbation of chronic obstructive pulmonary disease/bronchitis, suspecting (no official diagnosis of emphysema or COPD per chart review). Telemetry. Pulse oximetry. Supplemental O2 to keep O2 sats > 90%. still sob ,minimal excersion Continue bronchodilator therapy and IV steroids. Hold propranolol (bronchospasms). Patient was advised to consider tobacco smoking cessation. Mild hyponatremia, corrected sodium 133. Hold hydrochlorothiazide. Continue to monitor. Type 2 diabetes mellitus. BG checks before meals at bedtime. Continue Lantus. Insulin sliding scale. Hold metformin. Diabetic diet. Essential hypertension. Continue amlodipine, and DINO inhibitor (pt takes enalapril). Propranolol hold causes bronchospasms. Hyperlipidemia. Continue statin. Mood disorder. Continue home medications. Tobacco dependence. Tobacco cessation education. ongoing need for stay -Acute exacerbation of chronic obstructive pulmonary disease/bronchitis-need oxygen weaning ,nebs,steriods and respiratory status not optimal. Quality Stroke Does the patient have a stroke diagnosis?: No VTE Prior VTE?: No VTE Risk Level:: Medical - moderate - high VTE Device Contraindication: Treatment Not Indicated VTE Drug Contraindication: N/A - Med Ordered
[2024-08-13 20:39] LABS: Glucose, Whole Blood 304 mg/dL (60-115)
[2024-08-13] MEDS: HaloperidoL 1 MG TABLET 2 MG PO (21:53)
[2024-08-13] MEDS: Atorvastatin Calcium 20 MG TABLET PO (21:53)
[2024-08-14] VITALS (9 sets, daily range): BP systolic 142–162; BP diastolic 72–91; PULSE 69–82; RESP 18; TEMP 36.1–36.8; O2SAT 95–98
[2024-08-14 07:24] LABS: Glucose, Whole Blood 169 mg/dL (60-115)
[2024-08-14] MEDS: Albuterol/Iprat 2.5/0.5MG 3 ML AMPUL.NEB INHALE ×2 (08:06→12:05)
[2024-08-14] MEDS: Heparin Sodium,Porcine 5,000 UNIT/ML VIAL 5000 UNIT SUBCUT (09:11)
[2024-08-14] MEDS: Insulin Lispro 100 UNIT/ML 3 ML VIAL SUBCUT ×3 (09:11→21:35)
[2024-08-14] MEDS: methylPREDNISolone Sod Succ 40 MG/ML VIAL IVPUSH ×2 (09:11→21:34)
[2024-08-14] MEDS: guaiFENesin DM 100/10/5 ML 5 ML SYRUP 10 ML PO (09:11)
[2024-08-14] MEDS: atenoloL 50 MG TABLET PO ×2 (09:12→21:34)
[2024-08-14] MEDS: Aspirin Enteric Coated 81 MG TABLET.DR PO (09:12)
[2024-08-14] MEDS: Enalapril Maleate 10 MG TABLET 40 MG PO (09:12)
[2024-08-14] MEDS: busPIRone HCl 5 MG TABLET 15 MG PO ×2 (09:12→21:34)
[2024-08-14] MEDS: Benztropine Mesylate 1 MG TABLET PO ×2 (09:12→21:34)
[2024-08-14] MEDS: Insulin Glargine,Hum.rec.anlog 100 UNIT/ML 10 ML VIAL 14 UNIT SUBCUT (09:12)
[2024-08-14] MEDS: HaloperidoL 1 MG TABLET PO (09:12)
[2024-08-14] MEDS: amLODIPine Besylate 5 MG TABLET PO (09:12)
[2024-08-14] MEDS: Sodium Chloride Tab 1 GM TABLET 2 GM PO (09:13)
[2024-08-14] MEDS: 0.9 % Sodium Chloride Flush 3 ML SYRINGE IVFLUSH ×2 (09:13→16:03)
[2024-08-14] MEDS: Ketorolac Tromethamine 0.5% Op 5 ML DROPS 1 DROP EYE-RIGHT ×4 (09:20→21:36)
[2024-08-14 11:41] LABS: Glucose, Whole Blood 252 mg/dL (60-115)
[2024-08-14 13:05] LABS: Anion Gap 15 (12-20); Blood Urea Nitrogen 23 mg/dL (9-16); Carbon Dioxide 24 mmol/L (22-29); Chloride 94 mmol/L (96-108); Creatinine Clr Calc Pharmacy 57.5; Estimated Glomerular Filt Rate > 60; Glucose Random 323 mg/dL (60-115); Potassium 4.3 mmol/L (3.3-5.1); Sodium 129 mmol/L (135-145)
--- NOTE | 2024-08-14 13:41 | P.F2F_ITS ---
Service Date Service Date: 08/14/24 Encounter Date of encounter: 08/14/24 Reasons for Services Signs and symptoms assessed: Dyspnea on Exertion,Gross Deconditioning, Impaired Gait Pattern, Impaired Standing Balance,Muscle Weakness Reason for senior living: medication management, medication treatment and teach disease management Reason for physical therapy: home safety and mobility, therapeutic exercises, gait/transfer training, assess need for DME, ADL training and energy conservation MD Overseeing Care: Paul Lei Homebound: Leaving the home is medically contraindicated at this time without the asist of a device and/or another person due th the listed conditions above and below. Reason homebound: shortness of breath with minimal effort and weakness related to hospital stay Homebound supporting statement: -Frequency/ Duration 3-5X/WK -Goals (1-3 VISITS) 1. SUPINE <> SIT SUPERVISION 2. GAIT X 150' W/O AD W/ DISTANT SUPERVISION 3. GOOD SAFETY AWARENESS CONSISTENTLY W/ FUNCTIONAL MOBILITY -Treatment Plan Bed Mobility, Transfer Training,Gait Training, Therapeutic Activities, Therapeutic Exercise, Patient Education, Safety,Balance Certification: Based on the above findings, I certify that this patient is confined to the home and needs intermittent senior living care, physical therapy and/or speech therapy, or continues to need occupational therapy. The patient is under my care, and I have initiated the establishment of the plan of care. The patient will be followed by a physician who will periodically review the plan of care. Time Spent With Patient Time: Total time managing care of this patient today ____ minutes.
--- NOTE | 2024-08-14 13:47 | PM.DS ---
DS: Providers Provider Date of Service: 08/14/24 Date of admission: 08/12/24 02:01 Date of discharge: 08/14/24 Primary care physician: Paul Lei MD DS: Diagnosis Discharge Diagnosis (1) Acute exacerbation of chronic obstructive airways disease: Status: Acute DS: Summary Hospital Course Hospital Course: From the history and physical by the admitting hospitalist, Ulices Cook MD, 08/12/24: Devaughn Padilla is a 73 years old man with past medical history significant for type 2 diabetes mellitus on insulin and essential hypertension presents to the emergency department complaining of severe shortness on breath that started this morning after eating. He does complain of dry cough and wheezing. Denied chest pain, headache, palpitations or dizziness. Did not report fever or chills. Did not report any acute gastrointestinal or genitourinary symptoms. There is no leg edema. He has an ongoing tobacco smoker. Denied illicit drug use or alcohol abuse. In the ED, in the emergency department he was found to have tachycardia and tachypnea. Last blood pressure is 168/92. Oxygen saturation is 94 on room air. According to ED staff patient became very short of breath upon walking despite receiving Solu-Medrol IV and bronchodilator therapy x2. Blood workup showed no leukocytosis. Hemoglobin is 14.7 and platelets 192. There are no significant electrolyte imbalances, except for minimal hyponatremia (corrected Na+ 133). Renal function and LFTs are normal. BNP and troponin are normal. CXR showed mild chronic interstitial prominence with scattered peribronchial thickening and no focal consolidation. ECG showed normal sinus rhythm with a heart rate of 92 bpm, with nonspecific ST and T-wave abnormalities. ED tx: Albuterol nebs x2. Magnesium 2 g IV, Solu-Medrol 125 mg IV He was admitted to the hospitalist service and treated with bronchodilators and IV steroids for suspected COPD given past history of smoking. His symptoms resolved. Influenza/Covid-19/RSV PCR negative. No evidence of pneumonia. He was discharged on prednisone for 2 days along with albuterol rescue inhaler. He will need outpatient PFTs. He was seen by PT and outpatient PT was recommended. He was discharged back to [facility]. Time Attestation Discharge Coordination Time (in mins): 40 Quality: Safe Use of Opioids Does Pt have an Active Cancer Diagnosis on the Problem List?: No Quality: Stroke Does the patient have a stroke diagnosis?: No Physical Exam Vital Signs: Vital Signs: Last Vital Signs Temp 98.2 F 08/14/24 11:00 Pulse 82 08/14/24 12:07 Resp 18 08/14/24 12:07 BP 160/72 H 08/14/24 11:00 Pulse Ox 98 08/14/24 11:00 O2 Del Method Room Air 08/14/24 11:00 BMI result Body Mass Index 22.7 Gen: in no acute distress HEENT: sclera anicteric, moist mucus membranes Neck: supple Lungs: diminished Heart: regular rate and rhythm, no murmurs Abd: soft, non-tender, non-distended Ext: no edema Skin: warm/well-perfused Neuro: alert and oriented x3, no focal findings Psych: appropriate affect DS: Data Data Completed and Pending Completed studies during hospitalization [Text1]: Laboratory Results WBC 7.4 X10*3/uL (4.8-10.8) 08/12/24 04:40 RBC 5.13 X10*6/uL (4.60-5.80) 08/12/24 04:40 Hgb 15.2 g/dl (14.0-18.0) 08/12/24 04:40 Hct 43.3 % (42.0-52.0) 08/12/24 04:40 MCV 84.4 fL (80.0-98.0) 08/12/24 04:40 MCH 29.6 pg (27.0-33.0) 08/12/24 04:40 MCHC 35.1 g/dl (31.0-36.0) 08/12/24 04:40 RDW 14.6 % (11.0-16.0) 08/12/24 04:40 Plt Count 211 X10*3/uL (160-400) 08/12/24 04:40 MPV 9.0 fL (9.4-12.4) L 08/12/24 04:40 Immature Gran % (Auto) 0.4 % (0.0-0.4) 08/12/24 04:40 Neut % (Auto) 87.2 % (45-73) H 08/12/24 04:40 Lymph % (Auto) 10.9 % (20-40) L 08/12/24 04:40 [place] % (Auto) 1.4 % (2-11) L 08/12/24 04:40 Eos % (Auto) 0.0 % (0-4) 08/12/24 04:40 Baso % (Auto) 0.1 % (0-2) 08/12/24 04:40 Lymph # (Auto) 0.8 X10*3/uL (1.2-4.9) L 08/12/24 04:40 [place] # (Auto) 0.1 X10*3/uL (0.1-1.2) 08/12/24 04:40 Eos # (Auto) 0.0 X10*3/uL (0.0-0.4) 08/12/24 04:40 Baso # (Auto) 0.0 X10*3/uL (0.0-0.2) 08/12/24 04:40 Abs Immat Gran (auto) 0.03 X10*3/uL (0.00-0.03) 08/12/24 04:40 Absolute Neuts (auto) 6.4 x10*3/uL (2.0-8.3) 08/12/24 04:40 Absolute Nucleated RBC 0.000 X10*3/uL (0.0-0.012) 08/12/24 04:40 Nucleated RBC % (auto) 0.0 /100WBC (0.0-0.2) 08/12/24 04:40 Smear Tech's Comments VERIFIED 08/11/24 21:36 VBG pH 7.45 (7.32-7.43) H 08/12/24 04:43 VBG pCO2 33 mmHg 08/12/24 04:43 VBG pO2 40 mmHg 08/12/24 04:43 VBG HCO3 23 mmol/L (22-26) 08/12/24 04:43 VBG O2 Saturation 65.0 % 08/12/24 04:43 VBG Base Excess 0.4 mmol/L 08/12/24 04:43 Sodium 129 mmol/L (135-145) L 08/14/24 09:33 Potassium 4.3 mmol/L (3.3-5.1) 08/14/24 09:33 Chloride 94 mmol/L (96-108) L 08/14/24 09:33 Carbon Dioxide 24 mmol/L (22-29) 08/14/24 09:33 Anion Gap 15 (12-20) 08/14/24 09:33 BUN 23 mg/dL (9-16) H 08/14/24 09:33 Creatinine 0.82 mg/dL (0.5-1.4) 08/14/24 09:33 Estim Creat Clear Calc 57.5 08/14/24 09:33 Estimated GFR > 60 08/14/24 09:33 POC Glucose 252 mg/dL (60-115) H 08/14/24 11:30 Random Glucose 323 mg/dL (60-115) H 08/14/24 09:33 Calcium 9.0 mg/dL (8.4-10.2) 08/14/24 09:33 Total Bilirubin 0.4 mg/dL (0.0-1.0) 08/11/24 21:36 Direct Bilirubin 0.2 mg/dL (0.0-0.5) 08/11/24 21:36 AST 26 U/L (5-37) 08/11/24 21:36 ALT 19 U/L (0-40) 08/11/24 21:36 Alkaline Phosphatase 67 U/L (39-117) 08/11/24 21:36 Troponin I High Sens < 2.7 ng/L (<3.5-35.0) 08/11/24 21:36 B-Natriuretic Peptide 34 pg/mL (<100) 08/11/24 21:36 Total Protein 8.1 g/dL (6.5-8.0) H 08/11/24 21:36 Albumin 4.2 g/dL (3.5-5.0) 08/11/24 21:36 Urine Color Yellow 08/11/24 22:22 Urine Appearance Clear 08/11/24 22:22 Urine pH 6.0 (5.0-9.0) 08/11/24 22:22 Ur Specific [place] 1.010 (1.005-1.025) 08/11/24 22:22 Urine Protein Negative mg/dL (Neg-Trace) 08/11/24 22:22 Urine Glucose (UA) >=1000 mg/dL (Negative) H 08/11/24 22:22 Urine Ketones Negative mg/dL (Negative) 08/11/24 22:22 Urine Blood Negative (Negative) 08/11/24 22:22 Urine Nitrite Negative (Negative) 08/11/24 22: Ur Leukocyte Esterase Negative (Negative) 08/11/24 22: Urine RBC 0-2 /HPF (0-2) 08/11/24 22:22 Urine WBC 0-5 /HPF (0-5) 08/11/24 22:22 Ur Squamous Epith Cells 0-2 /HPF (0-2) 08/11/24 22: Urine Bacteria None Seen (None Seen) 08/11/24 22: Hyaline Casts 0-2 /LPF (0-2) 08/11/24 22: Influenza Type A (PCR) NEGATIVE (Negative) 08/11/24 21:36 Influenza Type B (PCR) NEGATIVE (Negative) 08/11/24 21:36 RSV RNA Qual (PCR) NEGATIVE (Negative) 08/11/24 21:36 SARS-CoV-2 RNA (RT-PCR) NEGATIVE (Negative) 08/11/24 21:36 Discharge Plan Discharge Anticipated Discharge Date/Time: 08/14/24 13:38 Patient Disposition: Xfer Other Discharge Diagnosis: COPD exacerbation [new diagnosis] Referrals: Paul Lei MD [Primary Care Provider] - 1 Week Discharge Medications: New prednisone 20 mg tablet 40 mg PO DAILY Qty: 4 0RF albuterol sulfate 90 mcg/actuation HFA aerosol inhaler 2 puff inhalation Q4-6H PRN (Reason: shortness of breath or wheezing) Qty: 8.5 0RF Rx Instructions: use with spacer device Continued enalapril maleate 20 mg tablet 40 mg PO DAILY haloperidol 1 mg tablet 1 mg PO DAILY amlodipine 5 mg tablet 5 mg PO DAILY aspirin 81 mg tablet,delayed release (DR/EC) 81 mg PO DAILY benztropine 1 mg tablet 1 mg PO BID atenolol 50 mg tablet 50 mg PO BID buspirone 15 mg tablet 15 mg PO BID metformin 500 mg Tablet 500 mg PO BIDWM acetaminophen 325 mg Tablet 650 mg PO Q4H PRN (Reason: Fever Or Pain) loperamide 2 mg Capsule 4 mg PO Q6H PRN (Reason: Diarrhea) dextromethorphan-guaifenesin [Tussin DM] 10-100 mg/5 mL Liquid 10 ml PO Q4H PRN (Reason: Cough) haloperidol 1 mg tablet 2 mg PO BEDTIME simvastatin 40 mg tablet 40 mg PO BEDTIME magnesium hydroxide [Milk of Magnesia] 400 mg/5 mL Suspension 30 ml PO DAILY PRN (Reason: Constipation) alum-mag hydroxide-simeth [Mintox] 200-200-20 mg/5 mL Suspension 30 ml PO Q4H PRN (Reason: GI distress) Rx Instructions: administer between meals and at bedtime ketorolac 0.4 % Drops 1 drp ophthalmic-Right QID sodium chloride 1,000 mg Tablet,Soluble 2,000 mg PO DAILY sodium chloride 1,000 mg Tablet,Soluble 1,000 mg PO BID@1400,2100 insulin glargine [Basaglar KwikPen U-100 Insulin] 100 unit/mL (3 mL) Insulin Pen 14 unit SUBCUT DAILY Trulicity 0.75 mg/0.5 mL Pen Injector 0.75 mg SUBCUT WE Discharge Orders: Discharge Order (Routine); Ordered 08/14/24 Ordered By: Anatoliy Freed Diet: Diabetic diet Activity on Discharge: As tolerated Stand Alone Forms: Patient Portal Discharge page Print Language: Japanese Care Plan Goals: respiratory health Health Concerns: COPD exacerbation [new diagnosis] Plan of Treatment: prednisone 40 mg daily for 2 more days albuterol inhaler as needed for shortness of breath or wheezing Please follow up with your primary care doctor within 1 week. Return to the hospital if you experience recurrent or worsening symptoms. Ask your primary care doctor to order PULMONARY FUNCTION TESTING [PFTs] Assessment: See Discharge Summary.
--- NOTE | 2024-08-14 14:30 | P.PNIM_ITS ---
Subjective Subjective Date of Service: 08/14/24 Interval History: This history was taken in Urdu from the patient. dyspnea improved used to smoke a lot per daughter no longer wheezing Review of Systems Review of Systems: Yes all other systems are reviewed and are negative Physical Exam 2 Vital Signs: Vital Signs: Last Vital Signs Temp 98.2 F 08/14/24 11:00 Pulse 82 08/14/24 12:07 Resp 18 08/14/24 12:07 BP 160/72 H 08/14/24 11:00 Pulse Ox 98 08/14/24 11:00 O2 Del Method Room Air 08/14/24 11:00 BMI result Body Mass Index 22.7 Gen: in no acute distress HEENT: sclera anicteric, moist mucus membranes Neck: supple Lungs: diminished Heart: regular rate and rhythm, no murmurs Abd: soft, non-tender, non-distended Ext: no edema Skin: warm/well-perfused Neuro: alert and oriented x3, no focal findings Psych: appropriate affect Objective Data Active Medications Acetaminophen (Acetaminophen 325 Mg Tablet) 975 mg PO Q6H PRN PRN Reason: Pain, Mild 1-3,fever,headache Al Hydroxide/Mg Hydroxide (Magnesium Hydrox/Alum Hydrox 30 Ml Oral.Susp) 30 ml PO Q4H PRN PRN Reason: GI distress Albuterol Sulfate (Albuterol Sulfate (0.083%) 2.5 Mg/3 Ml Vial.Neb) 2.5 mg INHALE Q2H PRN PRN Reason: Shortness of Breath/Wheezing Albuterol/Ipratropium (Albuterol/Iprat 2.5/0.5mg 3 Ml Ampul.Neb) 3 ml INHALE RQ4H WHILE AWAKE [facility] Last Admin: 08/14/24 12:05 Dose: 3 ml Documented By: JUAN CARLOS Amlodipine Besylate (Amlodipine Besylate 5 Mg Tablet) 5 mg PO DAILY [facility]; Protocol Last Admin: 08/14/24 09:12 Dose: 5 mg Documented By: SHOLA Aspirin (Aspirin Enteric Coated 81 Mg Tablet.) 81 mg PO DAILY [facility] Last Admin: 08/14/24 09:12 Dose: 81 mg Documented By: SHOLA Atenolol (Atenolol 50 Mg Tablet) 50 mg PO BID [facility]; Protocol Last Admin: 08/14/24 09:12 Dose: 50 mg Documented By: SHOLA Atorvastatin Calcium (Atorvastatin Calcium 20 Mg Tablet) 20 mg PO BEDTIME [facility] Last Admin: 08/13/24 21:53 Dose: 20 mg Documented By: LEXX Benztropine Mesylate (Benztropine Mesylate 1 Mg Tablet) 1 mg PO BID [facility] Last Admin: 08/14/24 09:12 Dose: 1 mg Documented By: SHOLA Buspirone HCl (Buspirone Hcl 5 Mg Tablet) 15 mg PO BID [facility] Last Admin: 08/14/24 09:12 Dose: 15 mg Documented By: SHOLA Enalapril Maleate (Enalapril Maleate 10 Mg Tablet) 40 mg PO DAILY [facility]; Protocol Last Admin: 08/14/24 09:12 Dose: 40 mg Documented By: SHOLA Glucose (Glucose Gel 15 Gm Gel..Gram.) 15 gm PO Q15M PRN; Protocol PRN Reason: per Hypoglycemia Standing Ord. Guaifenesin/Dextromethorphan (Guaifenesin Dm 100/10/5 Ml 5 Ml Syrup) 10 ml PO Q4H PRN PRN Reason: Cough Last Admin: 08/14/24 09:11 Dose: 10 ml Documented By: SHOLA Haloperidol (Haloperidol 1 Mg Tablet) 1 mg PO DAILY [facility] Last Admin: 08/14/24 09:12 Dose: 1 mg Documented By: SHOLA Haloperidol (Haloperidol 1 Mg Tablet) 2 mg PO BEDTIME [facility] Last Admin: 08/13/24 21:53 Dose: 2 mg Documented By: LEXX Heparin Sodium (Porcine) (Heparin Sodium,Porcine 5,000 Unit/Ml Vial) 5,000 unit SUBCUT Q12H [facility] Last Admin: 08/14/24 09:11 Dose: 5,000 unit Documented By: SHOLA Dextrose (D10) 250 mls @ 750 mls/hr IV Q15M PRN; Protocol PRN Reason: per Hypoglycemia Standing Ord. Insulin Glargine (Insulin Glargine,Hum.Rec.Anlog 100 Unit/Ml 10 Ml Vial) 14 unit SUBCUT DAILY [facility] Last Admin: 08/14/24 09:12 Dose: 14 unit Documented By: SHOLA Insulin Human Lispro (Insulin Lispro 100 Unit/Ml 3 Ml Vial) 0 unit SUBCUT QIDACHS [facility]; Protocol Last Admin: 08/14/24 11:34 Dose: 6 unit Documented By: SHOLA Ketorolac Tromethamine (Ketorolac Tromethamine 0.5% Op 5 Ml Drops) 1 drop EYE- RIGHT QID [facility] Last Admin: 08/14/24 11:34 Dose: 1 drop Documented By: SHOLA Loperamide HCl (Loperamide Hcl 2 Mg Capsule) 4 mg PO Q6H PRN PRN Reason: Diarrhea Magnesium Hydroxide (Milk Of Magnesia 30 Ml Oral.Susp) 30 ml PO DAILY PRN PRN Reason: Constipation Methylprednisolone Sodium Succinate (Methylprednisolone Sod Succ 40 Mg/Ml Vial) 40 mg IVPUSH BID [facility] Last Admin: 08/14/24 09:11 Dose: 40 mg Documented By: SHOLA Sodium Chloride (0.9 % Sodium Chloride Flush 3 Ml Syringe) 3 ml IVFLUSH QSHIFT [facility] Last Admin: 08/14/24 09:13 Dose: 3 ml Documented By: SHOLA Labs 08/12/24 04:40 08/14/24 09:33 Labs: Laboratory Results - last 24 hr 08/13/24 08/13/24 08/14/24 16:35 20:31 07:00 Anion Gap Estim Creat Clear Calc Estimated GFR POC Glucose 148 H 304 H 169 H Random Glucose Calcium 08/14/24 08/14/24 09:33 11:30 Anion Gap 15 Estim Creat Clear Calc 57.5 Estimated GFR > 60 POC Glucose 252 H Random Glucose 323 H Calcium 9.0 Assessment and Plan (1) Hyponatremia: Status: Acute (2) Acute exacerbation of chronic obstructive airways disease: Status: Acute Assessment and Plan: hospital d3 for 73yo ex-smoking M admitted with acute exacerbation of suspected COPD [new diagnosis] acute exac of COPD - change from IV to PO steroids, continue bronchodilators, instruct in inhaler use, outpatient PFTs mild hyponatremia - mild when corrected for hyperglycemia; on outpt PO NaCl; continue DM2 - basal-bolus insulin; increase doses HTN - continue amlodipine + enalapril + atenolol HLD - continue statin mood disorder - continue buspirone + benztropine + haloperidol VTE ppx - enoxaparin dispo - was at [facility] but they will not accept him back because he now needs a walker but lives on the 2nd floor; will discuss with CM Total time managing care of this patient today: 40 minutes. Quality Stroke Does the patient have a stroke diagnosis?: No VTE Prior VTE?: No VTE Risk Level:: Medical - moderate - high VTE Device Contraindication: Treatment Not Indicated VTE Drug Contraindication: N/A - Med Ordered
--- NOTE | 2024-08-14 15:30 | MHC.CM.PN ---
Per hospitalist, pt is medically cleared for discharge home with new VNA services ([facility] accepted pt). This CM called [facility] to inquire about planning for the pt to return home, this CM was informed to call their director of database marketing Angela ([phone]) to discuss discharge plans. Per Angela, the pt will need to be at his functionally independent baseline and be completely independent with his care/ambulation in order to return. Pt observed ambulating in the hallway using a (new) walker with a shuffled gait. Discussed with as pt will need to improve enough to climb stairs as he is on the second floor (and no elevator in the rest home). Pt unable to discharge to the rest home at this time as he is not at his previous baseline. This CM placed a call to Angela to update her that pt would not discharge today.
[2024-08-14] MEDS: Enoxaparin Sodium 40 MG/0.4 ML SYRINGE SUBCUT (16:03)
[2024-08-14 16:04] LABS: Glucose, Whole Blood 129 mg/dL (60-115)
[2024-08-14 21:07] LABS: Glucose, Whole Blood 244 mg/dL (60-115)
[2024-08-14] MEDS: Atorvastatin Calcium 20 MG TABLET PO (21:34)
[2024-08-14] MEDS: HaloperidoL 1 MG TABLET 2 MG PO (21:34)
[2024-08-14] MEDS: Sodium Chloride Tab 1 GM TABLET PO (21:34)
[2024-08-15] VITALS (7 sets, daily range): BP systolic 119–160; BP diastolic 68–92; PULSE 67–76; RESP 16–18; TEMP 36.1–36.9; O2SAT 94–97
[2024-08-15 07:39] LABS: Glucose, Whole Blood 108 mg/dL (60-115)
[2024-08-15] MEDS: Enalapril Maleate 10 MG TABLET 40 MG PO (08:28)
[2024-08-15] MEDS: predniSONE 20 MG TABLET 40 MG PO (08:29)
[2024-08-15] MEDS: amLODIPine Besylate 5 MG TABLET PO (08:29)
[2024-08-15] MEDS: Aspirin Enteric Coated 81 MG TABLET.DR PO (08:29)
[2024-08-15] MEDS: HaloperidoL 1 MG TABLET PO (08:29)
[2024-08-15] MEDS: Benztropine Mesylate 1 MG TABLET PO ×2 (08:30→21:21)
[2024-08-15] MEDS: atenoloL 50 MG TABLET PO ×2 (08:30→21:22)
[2024-08-15] MEDS: busPIRone HCl 5 MG TABLET 15 MG PO ×2 (08:30→21:21)
[2024-08-15] MEDS: Sodium Chloride Tab 1 GM TABLET 2 GM PO (08:30)
[2024-08-15] MEDS: Insulin Glargine,Hum.rec.anlog 100 UNIT/ML 10 ML VIAL 18 UNIT SUBCUT (08:30)
[2024-08-15] MEDS: Ketorolac Tromethamine 0.5% Op 5 ML DROPS 1 DROP EYE-RIGHT ×4 (08:31→21:23)
[2024-08-15] MEDS: 0.9 % Sodium Chloride Flush 3 ML SYRINGE IVFLUSH ×2 (08:31→16:42)
[2024-08-15] MEDS: guaiFENesin DM 100/10/5 ML 5 ML SYRUP 10 ML PO (08:31)
[2024-08-15 11:07] LABS: Glucose, Whole Blood 235 mg/dL (60-115)
[2024-08-15] MEDS: Insulin Lispro 100 UNIT/ML 3 ML VIAL SUBCUT ×2 (11:34→16:42)
--- NOTE | 2024-08-15 12:47 | HO.PM.IMPN ---
Subjective Subjective Date of Service: 08/15/24 Interval History: f/u on copd exacerbation, doing better, no sob Physical Exam Vital Signs: Vital Signs: Last Vital Signs Temp 98.0 F 08/15/24 11:11 Pulse 69 08/15/24 11:11 Resp 16 08/15/24 11:11 BP 131/68 08/15/24 11:11 Pulse Ox 97 08/15/24 11:11 O2 Del Method Room Air 08/15/24 11:11 BMI result Body Mass Index 22.7 Const: Other: General: AO X 3, no acute distress Resp: CTA bilateral CVS: S1,S2,RRR GI: +BS, NT, no distention Skin: No rash Neuro: motor grossly intact Psych: appropriate affect Objective Data Active Medications Acetaminophen (Acetaminophen 325 Mg Tablet) 975 mg PO Q6H PRN PRN Reason: Pain, Mild 1-3,fever,headache Al Hydroxide/Mg Hydroxide (Magnesium Hydrox/Alum Hydrox 30 Ml Oral.Susp) 30 ml PO Q4H PRN PRN Reason: GI distress Albuterol Sulfate (Albuterol Sulfate 90 Mcg 8 Gm Inhaler) 2 puff INHALE RQ4H PRN PRN Reason: Shortness of Breath/Wheezing Amlodipine Besylate (Amlodipine Besylate 5 Mg Tablet) 5 mg PO DAILY [facility]; Protocol Last Admin: 08/15/24 08:29 Dose: 5 mg Documented By: SHOLA Aspirin (Aspirin Enteric Coated 81 Mg Tablet.) 81 mg PO DAILY [facility] Last Admin: 08/15/24 08:29 Dose: 81 mg Documented By: SHOLA Atenolol (Atenolol 50 Mg Tablet) 50 mg PO BID [facility]; Protocol Last Admin: 08/15/24 08:30 Dose: 50 mg Documented By: SHOLA Atorvastatin Calcium (Atorvastatin Calcium 20 Mg Tablet) 20 mg PO BEDTIME [facility] Last Admin: 08/14/24 21:34 Dose: 20 mg Documented By: MICHELLE-HIROZEАлександр Benztropine Mesylate (Benztropine Mesylate 1 Mg Tablet) 1 mg PO BID [facility] Last Admin: 08/15/24 08:30 Dose: 1 mg Documented By: SHOLA Buspirone HCl (Buspirone Hcl 5 Mg Tablet) 15 mg PO BID [facility] Last Admin: 08/15/24 08:30 Dose: 15 mg Documented By: SHOLA Enalapril Maleate (Enalapril Maleate 10 Mg Tablet) 40 mg PO DAILY [facility]; Protocol Last Admin: 08/15/24 08:28 Dose: 40 mg Documented By: SHOLA Enoxaparin Sodium (Enoxaparin Sodium 40 Mg/0.4 Ml Syringe) 40 mg SUBCUT Q24H [facility] Last Admin: 08/14/24 16:03 Dose: 40 mg Documented By: SHOLA Glucose (Glucose Gel 15 Gm Gel..Gram.) 15 gm PO Q15M PRN; Protocol PRN Reason: per Hypoglycemia Standing Ord. Guaifenesin/Dextromethorphan (Guaifenesin Dm 100/10/5 Ml 5 Ml Syrup) 10 ml PO Q4H PRN PRN Reason: Cough Last Admin: 08/15/24 08:31 Dose: 10 ml Documented By: SHOLA Haloperidol (Haloperidol 1 Mg Tablet) 1 mg PO DAILY [facility] Last Admin: 08/15/24 08:29 Dose: 1 mg Documented By: SHOLA Haloperidol (Haloperidol 1 Mg Tablet) 2 mg PO BEDTIME [facility] Last Admin: 08/14/24 21:34 Dose: 2 mg Documented By: LEXX Dextrose (D10) 250 mls @ 750 mls/hr IV Q15M PRN; Protocol PRN Reason: per Hypoglycemia Standing Ord. Insulin Glargine (Insulin Glargine,Hum.Rec.Anlog 100 Unit/Ml 10 Ml Vial) 18 unit SUBCUT DAILY [facility] Last Admin: 08/15/24 08:30 Dose: 18 unit Documented By: SHOLA Insulin Human Lispro (Insulin Lispro 100 Unit/Ml 3 Ml Vial) 0 unit SUBCUT QIDACHS [facility]; Protocol Last Admin: 08/15/24 11:34 Dose: 6 unit Documented By: SHOLA Ketorolac Tromethamine (Ketorolac Tromethamine 0.5% Op 5 Ml Drops) 1 drop EYE-RIGHT QID [facility] Last Admin: 08/15/24 11:35 Dose: 1 drop Documented By: SHOLA Loperamide HCl (Loperamide Hcl 2 Mg Capsule) 4 mg PO Q6H PRN PRN Reason: Diarrhea Magnesium Hydroxide (Milk Of Magnesia 30 Ml Oral.Susp) 30 ml PO DAILY PRN PRN Reason: Constipation Methylprednisolone Sodium Succinate (Methylprednisolone Sod Succ 40 Mg/Ml Vial) 40 mg IVPUSH BID [facility] Last Admin: 08/15/24 08:37 Dose: Not Given Documented By: SHOLA Non-Admin Reason: PO ORDERED Prednisone (Prednisone 20 Mg Tablet) 40 mg PO DAILY [facility] Last Admin: 08/15/24 08:29 Dose: 40 mg Documented By: SHOLA Sodium Chloride (0.9 % Sodium Chloride Flush 3 Ml Syringe) 3 ml IVFLUSH QSHIFT [facility] Last Admin: 08/15/24 08:31 Dose: 3 ml Documented By: SHOLA Sodium Chloride (Sodium Chloride Tab 1 Gm Tablet) 1 gm PO BID@1400,2100 [facility] Last Admin: 08/14/24 21:34 Dose: 1 gm Documented By: MICHELLE-HIROZEАлександр Sodium Chloride (Sodium Chloride Tab 1 Gm Tablet) 2 gm PO DAILY [facility] Last Admin: 08/15/24 08:30 Dose: 2 gm Documented By: SHOLA Labs 08/12/24 04:40 08/14/24 09:33 Labs: Laboratory Results - last 24 hr 08/14/24 08/14/24 08/14/24 09:33 15:56 20:52 Anion Gap 15 Estim Creat Clear Calc 57.5 Estimated GFR > 60 POC Glucose 129 H 244 H Random Glucose 323 H Calcium 9.0 08/15/24 08/15/24 07:16 10:52 Anion Gap Estim Creat Clear Calc Estimated GFR POC Glucose 108 235 H Random Glucose Calcium Assessment and Plan (1) Hyponatremia: Status: Acute (2) Acute exacerbation of chronic obstructive airways disease: Status: Acute Assessment and Plan: 73yo ex-smoking M admitted with acute exacerbation of suspected COPD [new diagnosis] acute exac of COPD - change from IV to PO steroids, continue bronchodilators, instruct in inhaler use, outpatient PFTs mild hyponatremia - mild when corrected for hyperglycemia; on outpt PO NaCl; continue DM2 - basal-bolus insulin; HTN - continue amlodipine + enalapril + atenolol HLD - continue statin mood disorder - continue buspirone + benztropine + haloperidol VTE ppx - enoxaparin dispo - was at [facility] but they will not accept him back because he now needs a walker but lives on the 2nd floor; will discuss with CM Total time managing care of this patient today: 40 minutes. Quality Stroke Does the patient have a stroke diagnosis?: No VTE Prior VTE?: No VTE Risk Level:: Medical - moderate - high VTE Device Contraindication: Treatment Not Indicated VTE Drug Contraindication: N/A - Med Ordered
[2024-08-15 16:35] LABS: Glucose, Whole Blood 264 mg/dL (60-115)
[2024-08-15] MEDS: Enoxaparin Sodium 40 MG/0.4 ML SYRINGE SUBCUT (16:41)
[2024-08-15] MEDS: Sodium Chloride Tab 1 GM TABLET PO ×2 (16:42→21:21)
[2024-08-15] MEDS: Atorvastatin Calcium 20 MG TABLET PO (21:21)
[2024-08-15] MEDS: HaloperidoL 1 MG TABLET 2 MG PO (21:22)
[2024-08-16] VITALS: BP 157/59; PULSE 63; RESP 16; TEMP 36.6; O2SAT 98
[2024-08-16] MEDS: 0.9 % Sodium Chloride Flush 3 ML SYRINGE IVFLUSH ×2 (00:15→08:22)
[2024-08-16 04:00] VITALS: BP 160/82; PULSE 65; RESP 16; TEMP 36; O2SAT 95
[2024-08-16 07:09] LABS: Glucose, Whole Blood 106 mg/dL (60-115)
[2024-08-16 07:16] VITALS: BP 138/81; PULSE 73; RESP 17; TEMP 36.2; O2SAT 96
[2024-08-16 07:28] LABS: Glucose, Whole Blood 77 mg/dL (60-115)
[2024-08-16] MEDS: busPIRone HCl 5 MG TABLET 15 MG PO (08:19)
[2024-08-16] MEDS: HaloperidoL 1 MG TABLET PO (08:19)
[2024-08-16] MEDS: Aspirin Enteric Coated 81 MG TABLET.DR PO (08:19)
[2024-08-16] MEDS: guaiFENesin DM 100/10/5 ML 5 ML SYRUP 10 ML PO (08:19)
[2024-08-16] MEDS: Enalapril Maleate 10 MG TABLET 40 MG PO (08:19)
[2024-08-16] MEDS: atenoloL 50 MG TABLET PO (08:20)
[2024-08-16] MEDS: Insulin Glargine,Hum.rec.anlog 100 UNIT/ML 10 ML VIAL 18 UNIT SUBCUT (08:21)
[2024-08-16] MEDS: Benztropine Mesylate 1 MG TABLET PO (08:21)
[2024-08-16] MEDS: predniSONE 20 MG TABLET 40 MG PO (08:21)
[2024-08-16] MEDS: amLODIPine Besylate 5 MG TABLET PO (08:21)
[2024-08-16] MEDS: Sodium Chloride Tab 1 GM TABLET 2 GM PO (08:21)
[2024-08-16] MEDS: Ketorolac Tromethamine 0.5% Op 5 ML DROPS 1 DROP EYE-RIGHT ×2 (08:22→11:25)
[2024-08-16 11:11] LABS: Glucose, Whole Blood 240 mg/dL (60-115)
[2024-08-16] MEDS: Insulin Lispro 100 UNIT/ML 3 ML VIAL SUBCUT (11:25)
--- NOTE | 2024-08-16 12:07 | W.MHC.F2F ---
Service Date Service Date: 08/16/24 Encounter Date of encounter: 08/16/24 Reasons for Services Signs and symptoms assessed: balance, gait new diagnosis COPD Reason for senior care: medication management, medication treatment, teach disease management and other (respiratory health) Reason for physical therapy: home safety and mobility, therapeutic exercises, gait/transfer training, assess need for DME, ADL training and energy conservation MD Overseeing Care: Paul Lei Homebound: Leaving the home is medically contraindicated at this time without the asist of a device and/or another person due th the listed conditions above and below. Reason homebound: unsteady gait / fall risk Certification: Based on the above findings, I certify that this patient is confined to the home and needs intermittent senior care care, physical therapy and/or speech therapy, or continues to need occupational therapy. The patient is under my care, and I have initiated the establishment of the plan of care. The patient will be followed by a physician who will periodically review the plan of care. Time Spent With Patient Time: Total time managing care of this patient today ____ minutes.
--- NOTE | 2024-08-16 12:08 | PM.DS ---
DS: Providers Provider Date of Service: 08/16/24 Date of admission: 08/12/24 02:01 Date of discharge: 08/16/24 Primary care physician: aPul Lei MD DS: Diagnosis Discharge Diagnosis (1) Acute exacerbation of chronic obstructive airways disease: Status: Acute DS: Summary Hospital Course Hospital Course: From the history and physical by the admitting hospitalist, Ulices Cook MD, 08/12/24: Devaughn Padilla is a 73 years old man with past medical history significant for type 2 diabetes mellitus on insulin and essential hypertension presents to the emergency department complaining of severe shortness on breath that started this morning after eating. He does complain of dry cough and wheezing. Denied chest pain, headache, palpitations or dizziness. Did not report fever or chills. Did not report any acute gastrointestinal or genitourinary symptoms. There is no leg edema. He has an ongoing tobacco smoker. Denied illicit drug use or alcohol abuse. In the ED, in the emergency department he was found to have tachycardia and tachypnea. Last blood pressure is 168/92. Oxygen saturation is 94 on room air. According to ED staff patient became very short of breath upon walking despite receiving Solu-Medrol IV and bronchodilator therapy x2. Blood workup showed no leukocytosis. Hemoglobin is 14.7 and platelets 192. There are no significant electrolyte imbalances, except for minimal hyponatremia (corrected Na+ 133). Renal function and LFTs are normal. BNP and troponin are normal. CXR showed mild chronic interstitial prominence with scattered peribronchial thickening and no focal consolidation. ECG showed normal sinus rhythm with a heart rate of 92 bpm, with nonspecific ST and T-wave abnormalities. ED tx: Albuterol nebs x2. Magnesium 2 g IV, Solu-Medrol 125 mg IV He was admitted to the hospitalist service and treated with bronchodilators and IV steroids for suspected COPD given past history of smoking. His symptoms resolved. Influenza/Covid-19/RSV PCR negative. No evidence of pneumonia. He completed a course of methylprednisolone/prednisone in the hospital. He will need outpatient PFTs. He was seen by PT and outpatient PT was recommended. He was discharged back to [facility] with [facility] services. Time Attestation Discharge Coordination Time (in mins): 35 Quality: Safe Use of Opioids Does Pt have an Active Cancer Diagnosis on the Problem List?: No Quality: Stroke Does the patient have a stroke diagnosis?: No Physical Exam Vital Signs: Vital Signs: Last Vital Signs Temp 97.2 F 08/16/24 07:16 Pulse 73 08/16/24 07:16 Resp 17 08/16/24 07:16 BP 138/81 08/16/24 07:16 Pulse Ox 96 08/16/24 07:16 O2 Del Method Room Air 08/16/24 07:16 BMI result Body Mass Index 22.7 Gen: in no acute distress HEENT: sclera anicteric, moist mucus membranes Neck: supple Lungs: clear to auscultation bilaterally Heart: regular rate and rhythm, no murmurs Abd: soft, non-tender, non-distended Ext: no edema Skin: warm/well-perfused Neuro: alert and oriented x3, no focal findings Psych: appropriate affect DS: Data Data Completed and Pending Completed studies during hospitalization [Text1]: Laboratory Results WBC 7.4 X10*3/uL (4.8-10.8) 08/12/24 04:40 RBC 5.13 X10*6/uL (4.60-5.80) 08/12/24 04:40 Hgb 15.2 g/dl (14.0-18.0) 08/12/24 04:40 Hct 43.3 % (42.0-52.0) 08/12/24 04:40 MCV 84.4 fL (80.0-98.0) 08/12/24 04:40 MCH 29.6 pg (27.0-33.0) 08/12/24 04:40 MCHC 35.1 g/dl (31.0-36.0) 08/12/24 04:40 RDW 14.6 % (11.0-16.0) 08/12/24 04:40 Plt Count 211 X10*3/uL (160-400) 08/12/24 04:40 MPV 9.0 fL (9.4-12.4) L 08/12/24 04:40 Immature Gran % (Auto) 0.4 % (0.0-0.4) 08/12/24 04:40 Neut % (Auto) 87.2 % (45-73) H 08/12/24 04:40 Lymph % (Auto) 10.9 % (20-40) L 08/12/24 04:40 [place] % (Auto) 1.4 % (2-11) L 08/12/24 04:40 Eos % (Auto) 0.0 % (0-4) 08/12/24 04:40 Baso % (Auto) 0.1 % (0-2) 08/12/24 04:40 Lymph # (Auto) 0.8 X10*3/uL (1.2-4.9) L 08/12/24 04:40 [place] # (Auto) 0.1 X10*3/uL (0.1-1.2) 08/12/24 04:40 Eos # (Auto) 0.0 X10*3/uL (0.0-0.4) 08/12/24 04:40 Baso # (Auto) 0.0 X10*3/uL (0.0-0.2) 08/12/24 04:40 Abs Immat Gran (auto) 0.03 X10*3/uL (0.00-0.03) 08/12/24 04:40 Absolute Neuts (auto) 6.4 x10*3/uL (2.0-8.3) 08/12/24 04:40 Absolute Nucleated RBC 0.000 X10*3/uL (0.0-0.012) 08/12/24 04:40 Nucleated RBC % (auto) 0.0 /100WBC (0.0-0.2) 08/12/24 04:40 Smear Tech's Comments VERIFIED 08/11/24 21:36 VBG pH 7.45 (7.32-7.43) H 08/12/24 04:43 VBG pCO2 33 mmHg 08/12/24 04:43 VBG pO2 40 mmHg 08/12/24 04:43 VBG HCO3 23 mmol/L (22-26) 08/12/24 04:43 VBG O2 Saturation 65.0 % 08/12/24 04:43 VBG Base Excess 0.4 mmol/L 08/12/24 04:43 Sodium 129 mmol/L (135-145) L 08/14/24 09:33 Potassium 4.3 mmol/L (3.3-5.1) 08/14/24 09:33 Chloride 94 mmol/L (96-108) L 08/14/24 09:33 Carbon Dioxide 24 mmol/L (22-29) 08/14/24 09:33 Anion Gap 15 (12-20) 08/14/24 09:33 BUN 23 mg/dL (9-16) H 08/14/24 09:33 Creatinine 0.82 mg/dL (0.5-1.4) 08/14/24 09:33 Estim Creat Clear Calc 57.5 08/14/24 09:33 Estimated GFR > 60 08/14/24 09:33 POC Glucose 240 mg/dL (60-115) H 08/16/24 11:03 Random Glucose 323 mg/dL (60-115) H 08/14/24 09:33 Calcium 9.0 mg/dL (8.4-10.2) 08/14/24 09:33 Total Bilirubin 0.4 mg/dL (0.0-1.0) 08/11/24 21:36 Direct Bilirubin 0.2 mg/dL (0.0-0.5) 08/11/24 21:36 AST 26 U/L (5-37) 08/11/24 21:36 ALT 19 U/L (0-40) 08/11/24 21:36 Alkaline Phosphatase 67 U/L (39-117) 08/11/24 21:36 Troponin I High Sens < 2.7 ng/L (<3.5-35.0) 08/11/24 21:36 B-Natriuretic Peptide 34 pg/mL (<100) 08/11/24 21:36 Total Protein 8.1 g/dL (6.5-8.0) H 08/11/24 21:36 Albumin 4.2 g/dL (3.5-5.0) 08/11/24 21:36 Urine Color Yellow 08/11/24 22:22 Urine Appearance Clear 08/11/24 22:22 Urine pH 6.0 (5.0-9.0) 08/11/24 22:22 Ur Specific [place] Switch 1.010 (1.005-1.025) 08/11/24 22:22 Urine Protein Negative mg/dL (Neg-Trace) 08/11/24 22:22 Urine Glucose (UA) >=1000 mg/dL (Negative) H 08/11/24 22:22 Urine Ketones Negative mg/dL (Negative) 08/11/24 22:22 Urine Blood Negative (Negative) 08/11/24 22:22 Urine Nitrite Negative (Negative) 08/11/24 22:22 Ur Leukocyte Esterase Negative (Negative) 08/11/24 22:22 Urine RBC 0-2 /HPF (0-2) 08/11/24 22:22 Urine WBC 0-5 /HPF (0-5) 08/11/24 22:22 Ur Squamous Epith Cells 0-2 /HPF (0-2) 08/11/24 22:22 Urine Bacteria None Seen (None Seen) 08/11/24 22: Hyaline Casts 0-2 /LPF (0-2) 08/11/24 22:22 Influenza Type A (PCR) NEGATIVE (Negative) 08/11/24 21:36 Influenza Type B (PCR) NEGATIVE (Negative) 08/11/24 21: RSV RNA Qual (PCR) NEGATIVE (Negative) 08/11/24 21:36 SARS-CoV-2 RNA (RT-PCR) NEGATIVE (Negative) 08/11/24 21:36 CXR 08/11/24 Mild chronic interstitial prominence with scattered peribronchial thickening. No focal consolidation. Discharge Plan Discharge Anticipated Discharge Date/Time: 08/14/24 13:38 Patient Disposition: Home Health Service Discharge Diagnosis: COPD exacerbation [new diagnosis] Referrals: Paul Lei MD [Primary Care Provider] - 1 Week Discharge Medications: New prednisone 20 mg tablet 40 mg PO DAILY Qty: 4 0RF albuterol sulfate 90 mcg/actuation HFA aerosol inhaler 2 puff inhalation Q4-6H PRN (Reason: shortness of breath or wheezing) Qty: 8.5 0RF Rx Instructions: use with spacer device Continued enalapril maleate 20 mg tablet 40 mg PO DAILY haloperidol 1 mg tablet 1 mg PO DAILY amlodipine 5 mg tablet 5 mg PO DAILY aspirin 81 mg tablet,delayed release (DR/EC) 81 mg PO DAILY benztropine 1 mg tablet 1 mg PO BID atenolol 50 mg tablet 50 mg PO BID buspirone 15 mg tablet 15 mg PO BID metformin 500 mg Tablet 500 mg PO BIDWM acetaminophen 325 mg Tablet 650 mg PO Q4H PRN (Reason: Fever Or Pain) loperamide 2 mg Capsule 4 mg PO Q6H PRN (Reason: Diarrhea) dextromethorphan-guaifenesin [Tussin DM] 10-100 mg/5 mL Liquid 10 ml PO Q4H PRN (Reason: Cough) haloperidol 1 mg tablet 2 mg PO BEDTIME simvastatin 40 mg tablet 40 mg PO BEDTIME magnesium hydroxide [Milk of Magnesia] 400 mg/5 mL Suspension 30 ml PO DAILY PRN (Reason: Constipation) alum-mag hydroxide-simeth [Mintox] 200-200-20 mg/5 mL Suspension 30 ml PO Q4H PRN (Reason: GI distress) Rx Instructions: administer between meals and at bedtime ketorolac 0.4 % Drops 1 drp ophthalmic-Right QID sodium chloride 1,000 mg Tablet,Soluble 2,000 mg PO DAILY sodium chloride 1,000 mg Tablet,Soluble 1,000 mg PO BID@1400,2100 insulin glargine [Basaglar KwikPen U-100 Insulin] 100 unit/mL (3 mL) Insulin Pen 14 unit SUBCUT DAILY Trulicity 0.75 mg/0.5 mL Pen Injector 0.75 mg SUBCUT WE Discharge Orders: Discharge Order (Routine); Ordered 08/16/24 Ordered By: Anatoliy Freed Diet: Diabetic diet Activity on Discharge: As tolerated Stand Alone Forms: Patient Portal Discharge page Print Language: Kyrgyz Care Plan Goals: respiratory health Health Concerns: COPD exacerbation [new diagnosis] Plan of Treatment: completed prednisone in hospital albuterol inhaler as needed for shortness of breath or wheezing Please follow up with your primary care doctor within 1 week. Return to the hospital if you experience recurrent or worsening symptoms. Ask your primary care doctor to order PULMONARY FUNCTION TESTING [PFTs] Assessment: See Discharge Summary.
--- NOTE | 2024-08-16 13:04 | MHC.CM.PN ---
Second IMM, pt has been medically cleared for DC, he will return to [facility] via [facility] and have home care service from [facility].
== END 2024-08-16 15:16 | disposition home health service (06) | DRG 191 ==
LOC: HO.ED 08-12 01:45 → HO.EDOVER 08-12 03:17 → HO.IMC 08-12 16:56
PROVIDERS: Internal Medicine; Admitting Provider Internal Medicine; Emergency Provider Emergency Medicine Emergency Medical Services; PCP Internal Medicine; Visit Provider Family Medicine
DX: J44.1 Chronic obstructive pulmonary disease with (acute) exacerbation (principal); E87.1 Hypo-osmolality and hyponatremia; F17.210 Nicotine dependence, cigarettes, uncomplicated; I10 Essential (primary) hypertension; F39 Unspecified mood [affective] disorder; E11.9 Type 2 diabetes mellitus without complications; Z66 Do not resuscitate; E78.5 Hyperlipidemia, unspecified; Z20.822 Contact with and (suspected) exposure to COVID-19; Z71.3 Dietary counseling and surveillance; Z79.4 Long term (current) use of insulin; Z79.82 Long term (current) use of aspirin; Z79.84 Long term (current) use of oral hypoglycemic drugs; Z79.85 Long-term (current) use of injectable non-insulin antidiabetic drugs; Z79.899 Other long term (current) drug therapy
CPT/HCPCS: 0241U; 36415; 71045; 80048; 80076; 81001; 82803; 82947; 83880; 84484; 85025; 93005; 94640; 97116; 97162; 99285; J1644; J1650; J2919; J3475

== ENCOUNTER → 2024-08-11 21:11 | Outpatient (BNV) | payer MEDICARE, MEDICAID, SELFPAY | PROVIDERS: Admitting Provider Internal Medicine; Emergency Provider Emergency Medicine Emergency Medical Services; Visit Provider Internal Medicine Cardiovascular Disease | DX: R94.31 Abnormal electrocardiogram [ECG] [EKG] (principal); R06.02 Shortness of breath | CPT/HCPCS: 93010 ==

== ENCOUNTER → 2024-08-11 21:19 | Outpatient (BNV) | payer MEDICARE, MEDICAID, SELFPAY | PROVIDERS: Emergency Provider Emergency Medicine Emergency Medical Services; Visit Provider Radiology Vascular & Interventional Radiology | DX: R07.9 Chest pain, unspecified (principal) | CPT/HCPCS: 71046 ==

== ENCOUNTER → 2024-08-12 02:01 | Outpatient (BNV) | payer MEDICARE, MEDICAID, SELFPAY | PROVIDERS: Admitting Provider Internal Medicine; Emergency Provider Emergency Medicine Emergency Medical Services; Visit Provider Internal Medicine | DX: E87.1 Hypo-osmolality and hyponatremia (principal); J44.1 Chronic obstructive pulmonary disease with (acute) exacerbation | CPT/HCPCS: 99231; 99232; 99239; G0180 ==